=== PATIENT | female | born 1960 | race Caucasian/White ===

== ENCOUNTER 2016-05-31 15:15 | Inpatient (IN) | payer OTHER ==
[~2016-05-31] VITALS: Ht 157.5 cm; Wt 76.7 kg
[~2016-05-31 15:15] MED LIST: DIAZ5TAB4 PO; FLA250 PO; HYDR-4100 PO; HYDR12.5 PO; LEVO500T20 PO; LISI10TA5 PO; LORA-259 PO; NORCO5 PO; POTA20TA83 PO; SACC250C3 PO
[2016-05-31 15:24] VITALS: BP 160/109; PULSE 145; RESP 24; TEMP 99; O2SAT 97
--- NOTE | 2016-05-31 15:28 | NUR ---
Patient to ER bed 03 to gown for evaluation. Side rails up. Report given to Onur.
--- NOTE | 2016-05-31 15:30 | NUR ---
ER at bedside examining patient.
--- NOTE | 2016-05-31 15:40 | NUR ---
Pt presents to ED c/o LLQ abd pain raditing to flank. Pt h/o chronic back pain.Pt denies other significant med hx.
[2016-05-31] MEDS ORDERED: ONDANSETRON HCL 4 MG/2 ML VIAL IVP ONE (15:45)
[2016-05-31] MEDS ORDERED: NACL 0.9% 1,000 ML IV ONE (15:45)
--- NOTE | 2016-05-31 15:45 | NUR ---
# 20 gauge angiocath placed to Left Wrist. Use of asceptic technique. Opsite placed over site. Blood return noted. Blood for lab drawn from site. Flushed with 10 cc of normal saline. No evidence of infiltration noted. Patient tolerated well.
[2016-05-31 15:56] LABS: BILIRUBIN,URINE NEGATIVE (NEGATIVE); BLOOD, URINE NEGATIVE (NEGATIVE); CLARITY/URINE CLEAR (CLEAR); COLOR,URINE YELLOW (YELLOW); GLUCOSE,URINE NEGATIVE (NEGATIVE); KETONES,URINE NEGATIVE (NEGATIVE); LEUKOCYTE ESTERASE ,URINE NEGATIVE (NEGATIVE); NITRITE, URINE NEGATIVE (NEGATIVE); PH,URINE 6.5 (5.0-8.0); PROTEIN URINE NEGATIVE (NEGATIVE); UROBILINOGEN,URINE 0.2 (0.2-1.0)
[2016-05-31 16:03] LABS: EOSINOPHILS # (AUTO) 0.1 K/uL (0.0-0.4); MEAN CORPUSCULAR HEMOGLOBIN 28 pg (27-31); MEAN CORPUSCULAR HGB CONC 33 % (32-36)
[2016-05-31 16:13] LABS: CALCIUM 9.3 mg/dL (8.4-11.0); CREATININE 0.86 mg/dL (0.55-1.30); POTASSIUM 3.5 mmol/L (3.5-5.1)
[2016-05-31] MEDS ORDERED: LORazepam 2 MG/ML VIAL (FOR ER USE) IVP ONE (16:15)
[2016-05-31 16:16] LABS: BASOPHILS # (AUTO) 0.1 K/uL (0.0-0.2); BASOPHILS % (AUTO) 0.7 % (0.0-2.0); EOSINOPHILS % (AUTO) 1.3 % (0.0-4.0); HEMOGLOBIN 14.8 g/dL (12.0-16.0); LYMPHOCYTES # (AUTO) 2.2 K/uL (1.0-5.5); LYMPHOCYTES % (AUTO) 28.2 % (20.5-51.5); MEAN CORPUSCULAR VOLUME 85 fL (79.0-98.0); MONOCYTES # (AUTO) 0.2 K/uL (0.0-1.0); MONOCYTES % (AUTO) 2.4 % (1.7-9.3); NEUTROPHILS % (AUTO) 67.4 % (40.0-70.0); PLATELET COUNT (AUTO) 224 K/uL (130-430); RED CELL DISTRIBUTION WIDTH 13.2 % (9.0-15.0); WHITE BLOOD COUNT (AUTO) 7.6 K/uL (4.8-10.8)
[2016-05-31 16:18] LABS: ALBUMIN 4.4 g/dL (3.4-4.8); TOTAL BILIRUBIN 0.3 mg/dL (0.0-1.0); TOTAL PROTEIN, SERUM 8.6 g/dL (6.4-8.3)
[2016-05-31 16:20] LABS: PROTHROMBIN TIME 10.9 SECS (9.5-12.5)
--- NOTE | 2016-05-31 16:30 | NUR ---
Pt medicated for pain pain tolerated well.
[2016-05-31] MEDS ORDERED: KETOROLAC TROMETHAMINE 30 MG VIAL IVP ONE (17:00)
[2016-05-31 17:04] LABS: BARBITURATE, URINE NEGATIVE (NEG <=200); BENZODIAZEPINE, URINE POSITIVE (NEG <=150); CANNABINOID, URINE NEGATIVE (NEG <=50); COCAINE, URINE NEGATIVE (NEG <=150); METHAMPHETAMINES SCREEN,URINE NEGATIVE (NEG <=500); OPIATE, URINE POSITIVE (NEG <=100); PHENCYCLIDINE SCREEN,URINE NEGATIVE (NEG <=25); UR TRICYCLIC ANTIDEPRESSANTS NEGATIVE (NEG <=300); URINE AMPHETAMINE NEGATIVE (NEG <=500); URINE METHADONE NEGATIVE (NEG <=200); URINE OXYCODONE SCREEN NEGATIVE (NEG <=100); URINE PROPOXYPHENE SCREEN NEGATIVE (NEG <=300)
[2016-05-31] MEDS ORDERED: cefTRIAXone 1 GM IVPB PREMIX 50 ML IV ONE (17:30)
[2016-05-31] MEDS ORDERED: MORPHINE 4 MG/ML INJ. SYRINGE IVP ONE (17:30)
--- NOTE | 2016-05-31 18:30 | NUR ---
ADMIT NOTE Received pt from ER to the floor with a diagnosis of sepsis. Admission process initiated. Patient oriented to pain management, safety and call light-teach back done.
--- NOTE | 2016-05-31 18:35 | NUR ---
Dr. Carcamo at bedside to discuss POC.
--- NOTE | 2016-05-31 18:45 | NUR ---
Patient will be admitted to care of . Admitted to Telemetry unit. Will go to room 130a. Summary report printed. Report will be given at bedside.
[2016-05-31 18:54] VITALS: BP 151/94; PULSE 94; RESP 17; TEMP 97.1; O2SAT 99
[2016-05-31] MEDS ORDERED: MILK OF MAGNESIA 30 ML UDC PO PRN ×2 (19:00→19:15)
--- NOTE | 2016-05-31 19:23 | NUR ---
CONSULTATION PAGED REASON FOR CONSULTATION:ABDOMINAL PAIN WAS CONSULT CALLED?Y PERSON WHO WAS NOTIFIED:[place] CONSULTING PHYSICIAN:JOURDAN BEATTY (STEVEN [place] BUZZSAW OPERATOR HELPER) ROLL OR TAPE EDGE MACHINE OPERATOR SPECIALTY:GI ROLL OR TAPE EDGE MACHINE OPERATOR PHONE NUMBER:[phone]
--- NOTE | 2016-05-31 19:40 | NUR ---
DR. RODRIGUEZ EXAMINED AND TALKED TO PATIENT AT BEDSIDE
--- NOTE | 2016-05-31 19:47 | NUR ---
RECEIVED THE CALL FROM DR. PRESCOTT Received the call from Dr. Prescott and asked the reason for consult. Told Dr. Prescott chief complaint of abdomen pain and diarrhea, admitting diagnosis is sepsis. Dr. Prescott asked did patient has any CT pelvis and abdomen done. Told MD did not check it yet because changing shift and receiving report. MD stated "That is okay, just to put the order CT pelvis and abdomen with oral contrast, if not done yet. Also put the order of stool c-diff and stool culture if no other MD ordered." Order read back and okay to MD. Will check the order if no other MD ordered.
--- NOTE | 2016-05-31 19:50 | NUR ---
INITIAL NOTE Patient resting on the bed. No acute distress. Respiration even and unlabored. C/O abdomen pain 09/22, will give pain medication. AO x 4. Skin warm and dry to touch. IV intact to left wrist, no redness, no swelling. Discussed the safety issue, use call light when need help, and plan of care, verbally understanding. Safety measure maintained. Call light within reached. Bed in low position, side rails up, refused bed alarm. Will continue to monitor.
[2016-05-31 20:00] VITALS: BP 147/94; PULSE 95; RESP 18; TEMP 98.8; O2SAT 100
[2016-05-31] MEDS: PANTOPRAZOLE SODIUM 40 MG/VIAL (PROTONIX) IVP SCH (20:34)
[2016-05-31] MEDS: LACTOBACILLUS RHAMNOSUS GG 1 CAP CAPSULE PO SCH (20:34)
[2016-05-31] MEDS: DICYCLOMINE HCL 10 MG CAPSULE PO SCH ×2 (20:34→20:36)
[2016-05-31] MEDS: ENOXAPARIN SODIUM 40 MG/0.4 ML SYRINGE SUBCUT SCH (20:34)
[2016-05-31] MEDS: LORazepam 1 MG TABLET PO SCH (20:34)
[2016-05-31] MEDS: HYDROmorphone 2 MG/ML VIAL IVP PRN (20:35)
--- NOTE | 2016-05-31 20:35 | NUR ---
DILAUDID GIVEN Dilaudid 2mg IVP given as ordered for abdomen pain 09/22 per patient requested. No acute distress. Call light within reached. Bed in low position, side rails up. Will continue to monitor.
[2016-05-31] MEDS: KCL 20 mEq in 0.45% NS 1000 mL 1,000 ML IV SCH (20:36)
[2016-05-31] MEDS ORDERED: cefTRIAXone 1 GM in D5W 50 ML IV SCH (21:00)
[2016-05-31 21:20] VITALS: BP 147/94; PULSE 95; RESP 18; TEMP 98.8; O2SAT 100
[2016-05-31] MEDS: metroNIDAZOLE 500 mg/NS 100 ML IV SCH (21:34)
[2016-05-31] MEDS: ONDANSETRON HCL 4 MG/2 ML VIAL IVP PRN (23:10)
--- NOTE | 2016-05-31 23:10 | NUR ---
ZOFRAN GIVEN Patient c/o nausea, Zofran 4mg IVP given as ordered. No acute distress. Call light within reached. Safety measure maintained. Continue to monitor.
[2016-06-01 00:03] VITALS: BP 129/87; PULSE 87; RESP 18; TEMP 97.2; O2SAT 98
[2016-06-01] MEDS: HYDROmorphone 2 MG/ML VIAL IVP PRN ×7 (00:40→23:28)
--- NOTE | 2016-06-01 02:38 | NUR ---
ROUND Patient resting on the bed with eyes closed. No acute distress. Respiration even and unlabored. Bed in ow position, side rails up. Call light within reached. Continue to monitor.
[2016-06-01 04:00] VITALS: BP 122/76; PULSE 76; RESP 18; TEMP 97.8; O2SAT 99
--- NOTE | 2016-06-01 04:06 | NUR ---
ROUND Patient resting on the bed. Respiration even and unlabored. Bed in low position, side rails up. Call light within reached. Continue to monitor.
--- NOTE | 2016-06-01 04:50 | NUR ---
DILAUDID GIVEN Patient C/O abdomen pain 09/22. Dilaudid 2mg IVP given as ordered. No acute distress. Call light within reached. Bed in low position, side rails up. Will continue to monitor.
[2016-06-01] MEDS: metroNIDAZOLE 500 mg/NS 100 ML IV SCH ×3 (05:43→23:29)
[2016-06-01 06:08] LABS: BASOPHILS % (AUTO) 0.4 % (0.0-2.0); EOSINOPHILS # (AUTO) 0.3 K/uL (0.0-0.4); EOSINOPHILS % (AUTO) 4.8 % (0.0-4.0); HEMATOCRIT 35.4 % (36-48); HEMOGLOBIN 11.7 g/dL (12.0-16.0); LYMPHOCYTES # (AUTO) 2.7 K/uL (1.0-5.5); LYMPHOCYTES % (AUTO) 38.4 % (20.5-51.5); MEAN CORPUSCULAR HEMOGLOBIN 28 pg (27-31); MEAN CORPUSCULAR HGB CONC 33 % (32-36); MEAN CORPUSCULAR VOLUME 86 fL (79.0-98.0); MONOCYTES # (AUTO) 0.8 K/uL (0.0-1.0); MONOCYTES % (AUTO) 11.6 % (1.7-9.3); NEUTROPHILS # (AUTO) 3.1 K/uL (1.8-7.7); NEUTROPHILS % (AUTO) 44.8 % (40.0-70.0); PLATELET COUNT (AUTO) 190 K/uL (130-430); RED BLOOD CELL COUNT(AUTO) 4.11 MIL/uL (4.2-6.2); RED CELL DISTRIBUTION WIDTH 13.2 % (9.0-15.0); WHITE BLOOD COUNT (AUTO) 6.9 K/uL (4.8-10.8)
[2016-06-01 06:33] LABS: CALCIUM 7.7 mg/dL (8.4-11.0); CREATININE 0.75 mg/dL (0.55-1.30); POTASSIUM 3.5 mmol/L (3.5-5.1)
--- NOTE | 2016-06-01 06:39 | NUR ---
CLOSING NOTE Patient resting on the bed. No acute distress. Respiration even and unlabored. Skin warm and dry to touch. IV intact to left wrist, no redness, no swelling, no drainage. On KCl 20mEq in 1/2NS at 100ml/hr, infusing well. All needs met. Hourly rounding during shift. Pain med given around clock. NPO after midnight. Safety measure maintained. Call light within reached. Bed in low position, side rails up. Will endorse to morning shift nurse.
[2016-06-01 08:00] VITALS: BP 134/71; PULSE 77; RESP 16; TEMP 97.9; O2SAT 98
--- NOTE | 2016-06-01 08:00 | NUR ---
PATIENT A/OX4, BUT SOMEWHAT ANXIOUS. IV ON LEFT WRIST, #20, INFUSED WITH KCL 1/2 NS 20MEQ AT 100ML/HR, INTACT AND PATENT. C/O ABOUT DRY MOUTH AND EXPRESSED DESIRE TO DRINK; DR. RODRIGUEZ IS CALLED ABOUT CT RESULTS AND ASKED IF PATIENT CAN HAVE DRINK; DR RODRIGUEZ IS MADE AWARE. CALL LIGHT IN PLACE, BED LOCKED AT LOWEST POSITION, WILL CONTINUE TO MONITOR.
[2016-06-01] MEDS: DICYCLOMINE HCL 10 MG CAPSULE PO SCH ×2 (08:22→21:06)
[2016-06-01] MEDS: LORazepam 1 MG TABLET PO SCH ×2 (08:22→21:06)
[2016-06-01] MEDS: LACTOBACILLUS RHAMNOSUS GG 1 CAP CAPSULE PO SCH ×2 (08:22→21:06)
[2016-06-01] MEDS: DIAZEPAM 5 MG TABLET (VALIUM) PO SCH (08:22)
[2016-06-01] MEDS: PANTOPRAZOLE SODIUM 40 MG/VIAL (PROTONIX) IVP SCH ×2 (08:24→21:05)
--- NOTE | 2016-06-01 10:00 | NUR ---
PATIENT IS RESTING, NO SIGNS OF DISTRESS NOTED.
[2016-06-01 11:44] VITALS: BP 103/67; PULSE 61; RESP 19; TEMP 96.8; O2SAT 96
--- NOTE | 2016-06-01 12:00 | NUR ---
PATIENT C/O ABDOMINAL PAIN; 2MG DILAUDID IVP IS GIVEN.
--- NOTE | 2016-06-01 14:00 | NUR ---
PATIENT IS RESTING, SR ON MONITOR, NO SIGNS OF DISTRESS NOTED.
[2016-06-01 15:34] VITALS: BP 136/77; PULSE 71; RESP 19; TEMP 97.6; O2SAT 99
--- NOTE | 2016-06-01 16:00 | NUR ---
PATIENT IS C/O ABDOMINAL PAIN /. 2MG DILAUDID IS GIVEN IVP. WILL REASSESS.
--- NOTE | 2016-06-01 18:15 | NUR ---
PATIENT IS HAVING DINNER, NO SIGNS OF DISTRESS NOTED, SR ON MONITOR.
[2016-06-01] MEDS: KCL 20 mEq in 0.45% NS 1000 mL 1,000 ML IV SCH ×2 (18:41→21:10)
[2016-06-01] MEDS: ONDANSETRON HCL 4 MG/2 ML VIAL IVP PRN (18:41)
--- NOTE | 2016-06-01 19:40 | NUR ---
PAIN: PT CALLED AND STATED THAT SHE IS IN SEVERE PAIN AND ASKED FOR PAIN MEDICATION , INFORMED PT THAT RN DIDNT RECEIVED REPORT YET , WILL CHECK WITH THE ORDER AND WILL GIVE MEDICATION . NOTICED THAT DILAUDID IS DUE AT THIS TIME ;MEDICATION GIVEN TO THE PATIENT PER ORDER . Addendum: 06/02/16 at 2217 by Taurus Chance RN CORRECTION: WRONG DATE
[2016-06-01 19:45] VITALS: BP 140/79; PULSE 75; RESP 18; TEMP 99; O2SAT 96
--- NOTE | 2016-06-01 19:45 | NUR ---
INITIAL NOTE Patient resting on the bed. No acute distress. Respiration even and unlabored. AO x 4. Skin warm and dry to touch. IV intact to left wrist, no redness, no swelling, no drainage. On KCl 20mEq in 1/2NS at 100ml/hr, infusing well. Discussed the safety issue, use call light when need help, and plan of care, verbally understanding. Safety measure maintained. Call light within reached. Bed in low position, side rails up, refused bed alarm. Will continue to monitor.
[2016-06-01] MEDS: cefTRIAXone 1 GM in D5W 50 ML IV SCH (21:05)
[2016-06-01] MEDS: ENOXAPARIN SODIUM 40 MG/0.4 ML SYRINGE SUBCUT SCH (21:06)
--- NOTE | 2016-06-01 21:20 | NUR ---
ROUND Patient resting on the bed and watching TV. Respiration even and unlabored. No acute distress. Safety measure maintained. Call light within reached. continue to monitor.
[2016-06-02 00:15] VITALS: BP 142/92; PULSE 82; RESP 18; TEMP 98; O2SAT 99
--- NOTE | 2016-06-02 01:25 | NUR ---
ROUND Patient resting on the bed. Respiration even and unlabored. Bed in low position, side rails up. Call light within reached. Continue to monitor.
[2016-06-02] MEDS: HYDROmorphone 2 MG/ML VIAL IVP PRN ×6 (03:44→23:35)
--- NOTE | 2016-06-02 03:44 | NUR ---
DILAUDID GIVEN Patient C/O abdomen pain 09/22. Dilaudid 2mg IVP given as ordered. No acute distress. Safety measure maintained. Call light within reached. Bed in low position, side rails up. Will continue to monitor.
[2016-06-02 04:03] VITALS: BP 118/76; PULSE 77; RESP 18; TEMP 97.2; O2SAT 95
--- NOTE | 2016-06-02 05:10 | NUR ---
ROUND Patient resting on the bed. Respiration even and unlabored. Bed in low position, side rails up. Call light within reached. Continue to monitor.
--- NOTE | 2016-06-02 06:33 | NUR ---
CLOSING NOTE Patient sitting on the chair and watching TV. No acute distress. Respiration even and unlabored. Skin warm and dry to touch. IV intact to left wrist, no redness, no swelling, no drainage. On KCl 20mEq in 1/2NS at 100ml/hr, infusing well. All needs met. Hourly rounding during shift. Pain med given around clock. Safety measure maintained. Call light within reached. Bed in low position, side rails up, refused bed alarm. Will endorse to monitor shift nurse.
[2016-06-02] MEDS: metroNIDAZOLE 500 mg/NS 100 ML IV SCH ×3 (06:36→22:40)
[2016-06-02 07:45] VITALS: BP 162/87; PULSE 84; RESP 18; TEMP 97.8; O2SAT 97
--- NOTE | 2016-06-02 07:45 | NUR ---
opening notes received pt in room, pt sitting in chair, c/o pain 9/10 on abdomen, will medicate, no sob, no distress, on RA. call light and telephone in reach. bed in low position. reminded that we need stool sample for testing and to call for assist anytime and pain med, explained ordered medications , it effects and side effect.
[2016-06-02] MEDS: DICYCLOMINE HCL 10 MG CAPSULE PO SCH ×2 (08:02→21:07)
[2016-06-02] MEDS: DIAZEPAM 5 MG TABLET (VALIUM) PO SCH (08:02)
[2016-06-02] MEDS: LACTOBACILLUS RHAMNOSUS GG 1 CAP CAPSULE PO SCH ×2 (08:06→21:07)
[2016-06-02] MEDS: PANTOPRAZOLE SODIUM 40 MG/VIAL (PROTONIX) IVP SCH ×2 (08:06→21:07)
[2016-06-02] MEDS: LORazepam 1 MG TABLET PO SCH ×2 (08:07→21:07)
[2016-06-02] MEDS: KCL 20 mEq in 0.45% NS 1000 mL 1,000 ML IV SCH ×3 (09:45→22:46)
--- NOTE | 2016-06-02 09:49 | NUR ---
round notes, pt in bed, c/o of pain 05/23, stated that pain med worked only up to 30 min, told her that we will check with doctor if she can get other pain medications. safety and fall precaution in place. call light in reach, bed in low position. will continue to monitor.
--- NOTE | 2016-06-02 12:00 | NUR ---
rounding notes, Pt in bed, resting comfortably, no s/s pain, no distress, call light in reach, bed in low position. will cont to monitor.
[2016-06-02 12:28] VITALS: BP 139/78; PULSE 86; RESP 17; TEMP 98.5; O2SAT 100
[2016-06-02] MEDS ORDERED: AMITRIPTYLINE HCL 10 MG TABLET (ELAVIL) PO SCH ×2 (13:30→19:00)
[2016-06-02] MEDS ORDERED: AMITRIPTYLINE HCL 10 MG TABLET (ELAVIL) PO ONE (13:30)
--- NOTE | 2016-06-02 14:00 | NUR ---
rounding notes, Pt in bed, resting comfortably, pt c/o pain. pt requested for pain med, explained to pt that we will call pmd for additional pain med. new iv started on r forearm, call light in reach, bed in low position. will cont to monitor.
[2016-06-02 14:06] VITALS: Ht 157.5 cm; Wt 76.7 kg
--- NOTE | 2016-06-02 15:15 | NUR ---
closing notes, pt endorsed to RN Elif (from ICU) d/t change in staffing, sbar report given. endorsed that pt needs pain medication this time. and that i spoke with pmd dr bryant to increase/change time of pain med dilaudid. md did not give order. md said he may discharge patient later.
--- NOTE | 2016-06-02 15:29 | NUR ---
PAIN. PT SEEN WALKING TOWARDS THE BEDROOM DOOR, COMPLAINING OF ABDOMINAL PAIN, 7/10 SCALE, MEDICATED WITH DILAUDID 2 MG IVP.
--- NOTE | 2016-06-02 15:40 | NUR ---
LOC. PT HEARD TALKING ON THE PHONE, ON PRONE POSITION, WILL CONTINUE TO MONITOR.
--- NOTE | 2016-06-02 16:00 | NUR ---
REST. PT SEEN CALM AT THIS HOUR, SITTING UP IN THE CHAIR, HOLDING HER PHONE TO CHECK CALLS.
[2016-06-02 16:33] VITALS: BP 138/86; PULSE 87; RESP 16; TEMP 98.6; O2SAT 97
--- NOTE | 2016-06-02 17:10 | NUR ---
PAIN. PT SITTING IN THE CHAIR, ASKED FOR MEDICATION ON STOMACH PAIN, EDUCATED PT THAT SHE CAN NOT HAVE A DOSE NOW, EXPLAINED ON FREQUENCY OF ORDERED MEDS.
--- NOTE | 2016-06-02 18:40 | NUR ---
PT. SITTING COMFORTABLY IN BED. DENIES PAIN AT THIS TIME. REQUESTED FOR SOCKS AND VERBALIZED THAT THE ROOM TEMP. IS TOO COLD. LEFT PATIENT IN ROOM WITH CALL LIGHT WITHIN REACH.
[2016-06-02 19:40] VITALS: BP 141/78; PULSE 73; RESP 16; TEMP 98.2; O2SAT 96
--- NOTE | 2016-06-02 19:40 | NUR ---
PAIN: PT CALLED AND STATED THAT SHE IS IN SEVERE PAIN AND ASKED FOR PAIN MEDICATION , INFORMED PT THAT RN DIDNT RECEIVED REPORT YET , WILL CHECK WITH THE ORDER AND WILL GIVE MEDICATION . NOTICED THAT DILAUDID IS DUE AT THIS TIME ;MEDICATION GIVEN TO THE PATIENT PER ORDER .
--- NOTE | 2016-06-02 19:45 | NUR ---
INITIAL NOTES: PT IS A/O X4, MEDICATED WITH DILAUDID PER ORDER; PT STATED RN PUT MORE SALINE , INFORMED PT THAT ONLY USED 4 CC OF NS , PT IS NOT HAPPY THAT RN USED 4 CC.PT STATE YOU SHOULD NOT HAVE MIXED WITH 4 CC, IT WONT GIVE THE EFFECT , EDUCATED THE PT THE NEED TO MIX WITH NS , STILL PT IS NOT HAPPY . INFORMED CTheresaN BRANDON ; VITALS ARE STABLE ; ASSESSMENT DONE ;SR ON THE TELEMONITOR; BED IN LOW AND LOCK POSITION ; BED ALARM IS ON; INFORMED PT TO CALL FOR ASSISTANCE; PT STATED "I CAN WALK BY MYSELF, I DONT NEED ANY HELP" WILL CONTINUE TO MONITOR.
--- NOTE | 2016-06-02 20:00 | NUR ---
PAIN EDUCATION WHILE MAKING ROUNDS, PT. STILL COMPLAINING OF SEVERE ABDOMINAL PAIN, SHE STATED "DILAUDID IS NOT WORKING AND NURSES ARE MIXING IT WITH TOO MUCH SALINE." EDUCATION PROVIDED TO PT. REGARDING POLICY ON DILUTING DILAUDID, PT. STATED SHE DID NOT WANT US TO CALL THE DOCTOR.
[2016-06-02] MEDS: ENOXAPARIN SODIUM 40 MG/0.4 ML SYRINGE SUBCUT SCH (21:06)
[2016-06-02] MEDS: cefTRIAXone 1 GM in D5W 50 ML IV SCH (21:07)
--- NOTE | 2016-06-02 21:10 | NUR ---
MEDICATION: DUE MEDS GIVEN ; PT STATED SHE IS IN PAIN ,BECAUSE RN MIXED DILAUDID WITH MORE NS . TRY TO EDUCATE THE PT , INFORMED C.N ; INFORMED PT WILL CALL MD TO NOTIFY ABOUT THE PAIN .PT STATED NO .
[2016-06-02] MEDS: ONDANSETRON HCL 4 MG/2 ML VIAL IVP PRN (22:44)
--- NOTE | 2016-06-02 22:50 | NUR ---
NAUSEA: PT STATED SHE IS SLIGHTLY NAUSEATED , MEDICATED WITH ZOFRAN PER ORDER . PT STATED SHE IS STILL IN PAIN , INFORMED PT THAT WILL CALL MD , PT STTAED NO , I KNOW THAT I CAN TAKE MEDICATION 10 MIN EARLIER , INFORMED PT THAT PAIN MEDICATION IS ONLY DUE AT 2340 . PT STATED I KNOW THAT BUT I CAN HAVE IT AT 11 :30 . WILL MONITOR
--- NOTE | 2016-06-02 23:30 | NUR ---
MD ROUNDS: DR WYNNE MADE ROUNDS; INFORMED HIM THAT PT IS C/O PAIN WITH IN 2 HRS AFTER HER PAIN MEDICATION . MD STATED JUST GIVE DILAUDID PER ORDER.
--- NOTE | 2016-06-02 23:35 | NUR ---
PAIN: PT CALLED AND SAID PAIN MEDICATION IS DUE ; PT STATED SHE IS IN SEVERE PAIN ; PT SAID SHE DON'T WANT TO MIX THE DILAUDID WITH TOO MUCH OF SALINE ;EDUCATED THE PT , MIXED AND SHOWED THE PT ; MEDICATED , IV FLUSHED WELL.
[2016-06-03 00:46] VITALS: BP 132/88; PULSE 70; RESP 16; TEMP 97.4; O2SAT 94
--- NOTE | 2016-06-03 00:54 | NUR ---
RN ROUNDS : PT IS COMFORTABLE , READING FROM THE PHONE . WILL MONITOR.
--- NOTE | 2016-06-03 02:00 | NUR ---
RN ROUNDS: PT IS SLEEPING; NOT IN ANY ACUTE DISTRESS; WILL CONTINUE TO MONITOR.
--- NOTE | 2016-06-03 03:17 | NUR ---
PT CALLED: PT CALLED AND STATED HER PAIN MEDICATION WILL BE DUE AT 329 ; ASKED PT ARE YOU IN ANY PAIN ; PT STATED YES ; INFORMED PT WILL MEDICATE AT 329
[2016-06-03] MEDS: HYDROmorphone 2 MG/ML VIAL IVP PRN ×5 (03:34→18:18)
--- NOTE | 2016-06-03 03:34 | NUR ---
PAIN: PT C/O PAIN , MEDICATED WITH DILAUDID ; WHILE GIVING MEDICATION PT STATED SHE CANNOT FEEL THE COLD , EXPLAINED TO THE PT AND SHOWED HER THE SYRINGE WHILE GIVING .
[2016-06-03 03:54] VITALS: BP 116/68; PULSE 76; RESP 17; TEMP 98; O2SAT 94
--- NOTE | 2016-06-03 04:00 | NUR ---
RN NOTES: PT CALLED AND STATED THAT SHE WANTS RN TO CHECK HER PRIVATE PART , SHE FEELS LIKE SHE HAS RASHES THEIR , CHECKED , NO RASHES NOTED ; PT STATED RN CANNOT SEE WELL RN MIGHT NEED GLASSES . INFORMED PT WILL CALL C.N ; C.N CAME AND CHECKED AND NO RASHES NOTED .
[2016-06-03] MEDS: KCL 20 mEq in 0.45% NS 1000 mL 1,000 ML IV SCH ×2 (05:30→11:36)
--- NOTE | 2016-06-03 05:30 | NUR ---
RN NOTES: PT IS AWAKE, NOT IN ANY ACUTE DISTRESS. WILL CONTINUE TO MONITOR.
[2016-06-03] MEDS: metroNIDAZOLE 500 mg/NS 100 ML IV SCH ×2 (05:31→13:06)
--- NOTE | 2016-06-03 07:10 | NUR ---
CLOSING NOTES: PT HAD ONE SMALL DROP OF LOOSE BM , COLLECTED AND TOOK TO THE LAB , [facility] THEY CAN ONLY DO OCCULT BLOOD WITH IT . PT IS AWAKE;NOT IN ANY ACUTE DISTRESS; NO SIGNIFICANT CHANGES IN THE CONDITION ; WILL CONTINUE TO MONITOR AND WILL ENDORSE TO NEXT SHIFT NURSE. NO C/O ANY VOMITING OR DIARRHEA DURING THE SHIFT .
[2016-06-03 08:00] VITALS: BP 135/79; PULSE 79; RESP 18; TEMP 97.5; O2SAT 96
--- NOTE | 2016-06-03 08:00 | NUR ---
NOTE PT SITTING UP IN BED - NO SOB/RESP DISTRESS OR PAIN/DISCOMFORT NOTED. IV IN RIGHT FOREARM INTACT AND PATENT AT THIS TIME. IVF'S INFUSING WELL. PT AMBULATORY TO RESTROOM AND HALLWAY WITH IV POLE. PT WAS INFORMED THAT STOOL SPECIMEN WAS REQUIRED FOR TESTS GI MD HAD ORDERED YESTERDAY. PT VERBALIZES UNDERSTANDING. NO NEEDS NOTED. CALL LIGHT WITHIN REACH.
[2016-06-03] MEDS: PANTOPRAZOLE SODIUM 40 MG/VIAL (PROTONIX) IVP SCH (08:59)
[2016-06-03] MEDS: LORazepam 1 MG TABLET PO SCH (08:59)
[2016-06-03] MEDS: DICYCLOMINE HCL 10 MG CAPSULE PO SCH (08:59)
[2016-06-03] MEDS: LACTOBACILLUS RHAMNOSUS GG 1 CAP CAPSULE PO SCH (08:59)
[2016-06-03] MEDS: DIAZEPAM 5 MG TABLET (VALIUM) PO SCH (09:00)
[2016-06-03] MEDS ORDERED: AMITRIPTYLINE HCL 10 MG TABLET (ELAVIL) PO SCH (09:00)
[2016-06-03] MEDS ORDERED: MILK OF MAGNESIA 30 ML UDC PO ONE (09:15)
--- NOTE | 2016-06-03 10:00 | NUR ---
NOTE PT RESTING IN BED - NO NEEDS NOTED AT THIS TIME. PT WATCHING TELEVISION. PAIN TOLERANCE AT ACCEPTABLE LEVEL AT THIS TIME. CALL LIGHT WITHIN REACH.
[2016-06-03 12:31] VITALS: BP 128/75; PULSE 94; RESP 16; TEMP 98.3; O2SAT 99
--- NOTE | 2016-06-03 12:55 | NUR ---
NOTE PT SITTING UP IN BED EATING HER LUNCH AT THIS TIME. PAIN MEDICATION GIVEN AT 1135AM, REQUESTED AND SCHEDULED. PAIN TOLERABLE AT THIS TIME. IVF'S INFUSING WELL. CALL LIGHT WITHIN REACH.
--- NOTE | 2016-06-03 13:40 | NUR ---
NOTE 2ND STOOL SPECIMEN SENT TO LAB FOR TESTS ON STOOL. PT AMBULATORY IN HALLWAY WITH IV POLE AT THIS TIME.
--- NOTE | 2016-06-03 15:00 | NUR ---
NOTE PT RESTING IN BED. NO NEEDS NOTED. IVF'S INFUSING WELL THROUGH RIGHT IV SITE AT THIS TIME. PAIN TOLERABLE AT THIS TIME. CALL LIGHT WITHIN REACH.
[2016-06-03 16:00] VITALS: BP 122/64; PULSE 84; RESP 17; TEMP 98; O2SAT 99
--- NOTE | 2016-06-03 16:30 | NUR ---
note DR WYNNE ON THE FLOOR. VERBAL ORDER TO DC TELE AND SALINE LOCK IVF'S AT THIS TIME WAS GIVEN AND CARRIED OUT.
--- NOTE | 2016-06-03 16:45 | NUR ---
NOTE PT REC'D DISCHARGE HOME ORDER. PT REQUESTED PAIN MEDICATION AT 1830 BEFORE GOING HOME, DR WYNNE OKAYED PAIN IVP MEDICATION BEFORE PT GOES HOME. PT CALLING FAMILY AND PACKING HER BELONGINGS AT THIS TIME.
[2016-06-03 17:00] VITALS: BP 137/73; PULSE 72; RESP 18; TEMP 97.5; O2SAT 97
--- NOTE | 2016-06-03 18:10 | NUR ---
NOTE PT DRESSED IN STREET CLOTHES AND PACKED ALL HER BELONGINGS AT THIS TIME. NO SOB/RESP DISTRESS NOTED AT THIS TIME. PT'S TELE UNIT WAS DC'D AND RETURNED TO TRAFFIC CONTROL TECHNICIAN.
--- NOTE | 2016-06-03 18:40 | NUR ---
NOTE PT OFF THE FLOOR VIA WHEELCHAIR WITH ALL HER BELONGINGS. NO SOB/RESP DISTRESS OR ABDOMINAL PAIN/DISCOMFORT NOTED. PT STABLE. PT WAS GIVEN DISCHARGE INSTRUCTIONS AND QUESTIONS/CONCERNS WERE ANSWERED AT THIS TIME.
== END 2016-06-03 19:41 | disposition home or self-care (01) | DRG 392 ==
LOC: SED 15:15 → STU 18:03
PROVIDERS: ADMIT Family Medicine; ATTEND Family Medicine
DX: K52.9 Noninfective gastroenteritis and colitis, unspecified (principal); F41.9 Anxiety disorder, unspecified; M79.7 Fibromyalgia; I10 Essential (primary) hypertension; F32.9 Major depressive disorder, single episode, unspecified; G89.29 Other chronic pain; F17.210 Nicotine dependence, cigarettes, uncomplicated; Z90.710 Acquired absence of both cervix and uterus; Z90.721 Acquired absence of ovaries, unilateral; Z88.0 Allergy status to penicillin; Z79.899 Other long term (current) drug therapy
CPT/HCPCS: 36415; 76700-TC; 80048; 80053; 80307; 81003; 82150-TC; 82272; 83605; 83690-TC; 83735-TC; 85025; 85610-TC; 85730-TC; 87040-TC; 87045-TC; 87046; 87177; 87230-TC; 96365; 96375; 99285; C9113; J0696; J1170; J1650; J1885; J2060; J2270; J2405; J3480; J3490; J7030; J7060

== ENCOUNTER 2016-09-18 21:19 | Emergency (ER) | payer OTHER ==
[~2016-09-18] VITALS: Ht 157.5 cm; Wt 72.1 kg
[~2016-09-18 21:19] MED LIST changes: -HYDR12.5 PO; -LISI10TA5 PO; -NORCO5 PO
[2016-09-18 21:26] VITALS: BP_SYST 160
--- NOTE | 2016-09-18 21:26 | NUR ---
Patient to ER bed 8 to gown for evaluation. Side rails up. Report given to CARISSA Coronado.
--- NOTE | 2016-09-18 21:45 | NUR ---
Awake, alert. Pt states she had been having abdominal pain radiating to the back, has nausea and vomiting.
--- NOTE | 2016-09-18 22:00 | NUR ---
ER at bedside examining patient.
[2016-09-18 22:09] LABS: BILIRUBIN,URINE NEGATIVE (NEGATIVE); BLOOD, URINE NEGATIVE (NEGATIVE); CLARITY/URINE CLEAR (CLEAR); COLOR,URINE YELLOW (YELLOW); GLUCOSE,URINE NEGATIVE (NEGATIVE); KETONES,URINE NEGATIVE (NEGATIVE); LEUKOCYTE ESTERASE ,URINE NEGATIVE (NEGATIVE); NITRITE, URINE NEGATIVE (NEGATIVE); PH,URINE 6.5 (5.0-8.0); PROTEIN URINE NEGATIVE (NEGATIVE); UROBILINOGEN,URINE 0.2 (0.2-1.0)
[2016-09-18] MEDS ORDERED: NACL 0.9% 1,000 ML IV SCH (22:29)
[2016-09-18] MEDS ORDERED: HYDROmorphone 1 MG INJ. 1 MG/ML AMPUL IVP ONE (22:30)
[2016-09-18] MEDS ORDERED: ONDANSETRON HCL 4 MG/2 ML VIAL IVP ONE (22:30)
[2016-09-18 23:10] LABS: BASOPHILS % (AUTO) 0.4 % (0.0-2.0); EOSINOPHILS # (AUTO) 0.2 K/uL (0.0-0.4); EOSINOPHILS % (AUTO) 1.9 % (0.0-4.0); HEMATOCRIT 45.9 % (36-48); HEMOGLOBIN 14.8 g/dL (12.0-16.0); LYMPHOCYTES # (AUTO) 2.6 K/uL (1.0-5.5); LYMPHOCYTES % (AUTO) 26.5 % (20.5-51.5); MEAN CORPUSCULAR HEMOGLOBIN 28 pg (27-31); MEAN CORPUSCULAR HGB CONC 32 % (32-36); MEAN CORPUSCULAR VOLUME 86 fL (79.0-98.0); MONOCYTES # (AUTO) 0.6 K/uL (0.0-1.0); MONOCYTES % (AUTO) 6.6 % (1.7-9.3); NEUTROPHILS # (AUTO) 6.4 K/uL (1.8-7.7); NEUTROPHILS % (AUTO) 64.6 % (40.0-70.0); PLATELET COUNT (AUTO) 240 K/uL (130-430); RED BLOOD CELL COUNT(AUTO) 5.32 MIL/uL (4.2-6.2); RED CELL DISTRIBUTION WIDTH 14.2 % (9.0-15.0); WHITE BLOOD COUNT (AUTO) 9.8 K/uL (4.8-10.8)
[2016-09-18 23:17] LABS: CALCIUM 9.3 mg/dL (8.4-11.0); CREATININE 0.8 mg/dL (0.55-1.30); POTASSIUM 3.3 mmol/L (3.5-5.1)
[2016-09-18 23:22] LABS: ALBUMIN 4.2 g/dL (3.4-4.8); TOTAL BILIRUBIN 0.3 mg/dL (0.0-1.0); TOTAL PROTEIN, SERUM 8.3 g/dL (6.4-8.3)
[2016-09-19] MEDS ORDERED: HYDROmorphone 1 MG INJ. 1 MG/ML AMPUL IVP ONE (00:15)
[2016-09-19 01:30] VITALS: BP_SYST 146
--- NOTE | 2016-09-19 01:30 | NUR ---
Patient given written and verbal discharge instructions and verbalizes understanding. ER dr Elmer GUZMAN discussed with patient the results and treatment provided. Patient in stable condition. ID arm band removed. IV catheter removed intact and dressing applied, no active bleeding. Rx of miralax, reglan, zofran, given. Patient educated on pain management and to follow up with PMD. Pain Scale 2/10. Opportunity for questions provided and answered.
== END 2016-09-19 01:30 | disposition home or self-care (01) ==
LOC: SED 21:19
DX: R10.9 Unspecified abdominal pain (principal); R11.0 Nausea; I10 Essential (primary) hypertension; Z90.710 Acquired absence of both cervix and uterus; Z88.1 Allergy status to other antibiotic agents; Z79.899 Other long term (current) drug therapy
CPT/HCPCS: 36415; 71010; 74176; 80053; 81003; 81025; 83605; 84484; 85025; 85610; 85730; 87040; 93005; 96361; 96374; 96375; 96376; 99285; J1170 ×2; J2405; J7030

== ENCOUNTER 2016-12-26 17:53 | Emergency (ER) | payer OTHER ==
[~2016-12-26] VITALS: Ht 152.4 cm; Wt 66.7 kg
[2016-12-26 18:02] VITALS: BP_SYST 169
[2016-12-26 18:56] LABS: BASOPHILS # (AUTO) 0.1 K/uL (0.0-0.2); BASOPHILS % (AUTO) 1.3 % (0.0-2.0); EOSINOPHILS # (AUTO) 0.3 K/uL (0.0-0.4); EOSINOPHILS % (AUTO) 3.6 % (0.0-4.0); HEMATOCRIT 45.3 % (36-48); HEMOGLOBIN 14.8 g/dL (12.0-16.0); LYMPHOCYTES # (AUTO) 2.3 K/uL (1.0-5.5); LYMPHOCYTES % (AUTO) 24.8 % (20.5-51.5); MEAN CORPUSCULAR HEMOGLOBIN 29 pg (27-31); MEAN CORPUSCULAR HGB CONC 33 % (32-36); MEAN CORPUSCULAR VOLUME 88 fL (79.0-98.0); MONOCYTES # (AUTO) 0.9 K/uL (0.0-1.0); MONOCYTES % (AUTO) 9.9 % (1.7-9.3); NEUTROPHILS # (AUTO) 5.8 K/uL (1.8-7.7); NEUTROPHILS % (AUTO) 60.4 % (40.0-70.0); PLATELET COUNT (AUTO) 257 K/uL (130-430); RED BLOOD CELL COUNT(AUTO) 5.18 MIL/uL (4.2-6.2); RED CELL DISTRIBUTION WIDTH 12.8 % (9.0-15.0); WHITE BLOOD COUNT (AUTO) 9.4 K/uL (4.8-10.8)
[2016-12-26 19:13] LABS: CALCIUM 8.9 mg/dL (8.4-11.0); CREATININE 0.73 mg/dL (0.55-1.30)
[2016-12-26 19:18] LABS: ALBUMIN 4.1 g/dL (3.4-4.8); TOTAL BILIRUBIN 0.2 mg/dL (0.0-1.0)
[2016-12-26] MEDS ORDERED: PROCHLORPERAZINE EDISYLATE 10 MG/2 ML VIAL IM ONE ×2 (19:45→20:30)
[2016-12-26] MEDS ORDERED: POTASSIUM CHLORIDE 20 MEQ/PKT PACKET PO ONE ×2 (19:45→20:30)
[2016-12-26] MEDS ORDERED: fentaNYL CITRATE/PF 100 MCG/2 ML AMP IM ONE ×2 (19:45→20:30)
[2016-12-26 20:54] VITALS: BP_SYST 140
== END 2016-12-26 20:54 | disposition home or self-care (01) ==
LOC: SED 17:53
DX: M54.12 Radiculopathy, cervical region (principal); E87.6 Hypokalemia; G89.29 Other chronic pain; I10 Essential (primary) hypertension; Z90.710 Acquired absence of both cervix and uterus; Z98.51 Tubal ligation status; Z88.1 Allergy status to other antibiotic agents; Z88.7 Allergy status to serum and vaccine; Z79.899 Other long term (current) drug therapy
CPT/HCPCS: 36415; 71010; 80053; 84484; 85025; 93005; 96372; 99285; J0780; J3010

== ENCOUNTER 2017-03-09 15:20 | Emergency (ER) | payer OTHER ==
[~2017-03-09] VITALS: Ht 152.4 cm; Wt 66.2 kg
[2017-03-09 15:28] VITALS: BP_SYST 162
--- NOTE | 2017-03-09 15:37 | NUR ---
Patient triaged and placed in waiting room. VSS and patient appears in no acute distress at this time. Accompanied by self, awaiting available bed, and MD notified of need for MSE. EKG shown to Dr. Romero sinus tach. Pt denies chest pain, states her HR goes up when she is in pain.
[2017-03-09 15:53] LABS: BILIRUBIN,URINE NEGATIVE (NEGATIVE); BLOOD, URINE NEGATIVE (NEGATIVE); CLARITY/URINE CLEAR (CLEAR); COLOR,URINE YELLOW (YELLOW); GLUCOSE,URINE NEGATIVE (NEGATIVE); KETONES,URINE NEGATIVE (NEGATIVE); LEUKOCYTE ESTERASE ,URINE NEGATIVE (NEGATIVE); NITRITE, URINE NEGATIVE (NEGATIVE); PROTEIN URINE NEGATIVE (NEGATIVE); UROBILINOGEN,URINE 0.2 (0.2-1.0)
[2017-03-09 16:16] LABS: BASOPHILS # (AUTO) 0.2 K/uL (0.0-0.2); BASOPHILS % (AUTO) 1.5 % (0.0-2.0); EOSINOPHILS # (AUTO) 0.2 K/uL (0.0-0.4); EOSINOPHILS % (AUTO) 1.7 % (0.0-4.0); HEMOGLOBIN 14.5 g/dL (12.0-16.0); LYMPHOCYTES # (AUTO) 2.6 K/uL (1.0-5.5); LYMPHOCYTES % (AUTO) 21.2 % (20.5-51.5); MEAN CORPUSCULAR HEMOGLOBIN 28 pg (27-31); MEAN CORPUSCULAR HGB CONC 33 % (32-36); MEAN CORPUSCULAR VOLUME 85 fL (79.0-98.0); MONOCYTES # (AUTO) 0.5 K/uL (0.0-1.0); MONOCYTES % (AUTO) 4.3 % (1.7-9.3); NEUTROPHILS # (AUTO) 8.8 K/uL (1.8-7.7); NEUTROPHILS % (AUTO) 71.3 % (40.0-70.0); PLATELET COUNT (AUTO) 308 K/uL (130-430); RED BLOOD CELL COUNT(AUTO) 5.15 MIL/uL (4.2-6.2); RED CELL DISTRIBUTION WIDTH 13.3 % (9.0-15.0); WHITE BLOOD COUNT (AUTO) 12.3 K/uL (4.8-10.8)
--- NOTE | 2017-03-09 16:26 | NUR ---
Patient to ER bed 05 to gown for evaluation. Side rails up. Report given to nurse
[2017-03-09 16:35] LABS: CALCIUM 10.1 mg/dL (8.4-11.0); CREATININE 0.7 mg/dL (0.55-1.30); POTASSIUM 3.7 mmol/L (3.5-5.1)
[2017-03-09 16:51] LABS: ALBUMIN 4.3 g/dL (3.4-4.8); TOTAL BILIRUBIN 0.3 mg/dL (0.0-1.0)
--- NOTE | 2017-03-09 17:04 | NUR ---
ER at bedside examining patient.
[2017-03-09] MEDS ORDERED: MAG HYDROX/AL HYDROX/SIMETH 30 ML, LIDOCAINE VISCOUS 2% 15ML (PO) 10 ML, BELLADONNA ALK... PO ONE ×3 (17:15)
[2017-03-09] MEDS ORDERED: KETOROLAC TROMETHAMINE 60 MG/2 ML VIAL IM ONE (17:15)
--- NOTE | 2017-03-09 17:41 | NUR ---
C/O abd pain with n/v with history of the same no s/s of distress at this time
[2017-03-09] MEDS ORDERED: ONDANSETRON 4 MG ODT TAB PO ONE (18:00)
--- NOTE | 2017-03-09 18:09 | NUR ---
Patient given written and verbal discharge instructions and verbalizes understanding. ER MD discussed with patient the results and treatment provided. Patient in stable condition. ID arm band removed. Rx of zofran given. Patient educated on pain management and to follow up with PMD. Pain Scale 6/10, will take her miralx and norco when she gets home. Opportunity for questions provided and answered.
[2017-03-09 18:10] VITALS: BP_SYST 141
== END 2017-03-09 18:10 | disposition home or self-care (01) ==
LOC: SED 15:20
DX: R10.12 Left upper quadrant pain (principal); R19.7 Diarrhea, unspecified; R11.0 Nausea; I10 Essential (primary) hypertension; F17.200 Nicotine dependence, unspecified, uncomplicated; Z90.710 Acquired absence of both cervix and uterus; Z88.1 Allergy status to other antibiotic agents; Z88.7 Allergy status to serum and vaccine; Z98.890 Other specified postprocedural states
CPT/HCPCS: 36415; 80053; 81003; 83690; 85025; 93005; 96372; 99285; J1885; J2001; Q0162

== ENCOUNTER 2017-06-20 06:22 | Emergency (ER) | payer OTHER ==
[~2017-06-20] VITALS: Ht 157.5 cm; Wt 70.3 kg
[2017-06-20 06:35] VITALS: BP_SYST 165
[2017-06-20 07:06] LABS: BILIRUBIN,URINE NEGATIVE (NEGATIVE); BLOOD, URINE NEGATIVE (NEGATIVE); CLARITY/URINE CLEAR (CLEAR); COLOR,URINE YELLOW (YELLOW); GLUCOSE,URINE NEGATIVE (NEGATIVE); KETONES,URINE NEGATIVE (NEGATIVE); LEUKOCYTE ESTERASE ,URINE NEGATIVE (NEGATIVE); NITRITE, URINE NEGATIVE (NEGATIVE); PH,URINE 7.5 (5.0-8.0); PROTEIN URINE NEGATIVE (NEGATIVE); UROBILINOGEN,URINE 0.2 (0.2-1.0)
[2017-06-20] MEDS ORDERED: KETOROLAC TROMETHAMINE 30 MG VIAL IVP ONE (07:45)
[2017-06-20] MEDS ORDERED: MAG HYDROX/AL HYDROX/SIMETH 30 ML, BELLADONNA ALKALOIDS/PHENOBARB 10 ML, LIDOCAINE VISC... PO ONE ×3 (07:45)
[2017-06-20] MEDS ORDERED: KETOROLAC TROMETHAMINE 60 MG/2 ML VIAL IM ONE (07:45)
[2017-06-20 07:49] LABS: BASOPHILS # (AUTO) 0.1 K/uL (0.0-0.2); EOSINOPHILS # (AUTO) 0.1 K/uL (0.0-0.4); EOSINOPHILS % (AUTO) 1.1 % (0.0-4.0); HEMATOCRIT 46.3 % (36-48); HEMOGLOBIN 15.4 g/dL (12.0-16.0); LYMPHOCYTES # (AUTO) 1.5 K/uL (1.0-5.5); MEAN CORPUSCULAR HEMOGLOBIN 29 pg (27-31); MEAN CORPUSCULAR HGB CONC 33 % (32-36); MEAN CORPUSCULAR VOLUME 87 fL (79.0-98.0); MONOCYTES # (AUTO) 0.4 K/uL (0.0-1.0); MONOCYTES % (AUTO) 3.6 % (1.7-9.3); NEUTROPHILS # (AUTO) 7.6 K/uL (1.8-7.7); NEUTROPHILS % (AUTO) 79.3 % (40.0-70.0); PLATELET COUNT (AUTO) 267 K/uL (130-430); RED BLOOD CELL COUNT(AUTO) 5.32 MIL/uL (4.2-6.2); RED CELL DISTRIBUTION WIDTH 13.9 % (9.0-15.0); WHITE BLOOD COUNT (AUTO) 9.7 K/uL (4.8-10.8)
[2017-06-20 07:54] LABS: CALCIUM 9.9 mg/dL (8.4-11.0); CREATININE 0.57 mg/dL (0.55-1.30); POTASSIUM 3.1 mmol/L (3.5-5.1)
[2017-06-20 07:58] LABS: ALBUMIN 4.5 g/dL (3.4-4.8); TOTAL BILIRUBIN 0.5 mg/dL (0.0-1.0)
[2017-06-20 08:17] LABS: BARBITURATE, URINE NEGATIVE (NEG <=200); BENZODIAZEPINE, URINE POSITIVE (NEG <=150); CANNABINOID, URINE NEGATIVE (NEG <=50); COCAINE, URINE NEGATIVE (NEG <=150); METHAMPHETAMINES SCREEN,URINE NEGATIVE (NEG <=500); OPIATE, URINE POSITIVE (NEG <=100); PHENCYCLIDINE SCREEN,URINE NEGATIVE (NEG <=25); UR TRICYCLIC ANTIDEPRESSANTS NEGATIVE (NEG <=300); URINE AMPHETAMINE NEGATIVE (NEG <=500); URINE METHADONE NEGATIVE (NEG <=200); URINE OXYCODONE SCREEN NEGATIVE (NEG <=100); URINE PROPOXYPHENE SCREEN NEGATIVE (NEG <=300)
[2017-06-20 09:11] VITALS: BP_SYST 163
== END 2017-06-20 09:09 | disposition home or self-care (01) ==
LOC: SED 06:22
DX: G89.29 Other chronic pain (principal); R10.13 Epigastric pain; F45.9 Somatoform disorder, unspecified; R30.0 Dysuria; I10 Essential (primary) hypertension; K21.9 Gastro-esophageal reflux disease without esophagitis; Z88.1 Allergy status to other antibiotic agents; Z79.899 Other long term (current) drug therapy
CPT/HCPCS: 36415; 80053; 80307; 81003; 83690; 85025; 96374; 99284; J1885; J2001

== ENCOUNTER 2017-10-17 22:23 | Emergency (ER) | payer OTHER ==
[~2017-10-17] VITALS: Ht 152.4 cm; Wt 72.6 kg
[2017-10-17] MEDS ORDERED: NACL 0.9% 1,000 ML IV ONE (22:28)
[2017-10-17] MEDS ORDERED: ONDANSETRON HCL 4 MG/2 ML VIAL IVP ONE (23:00)
[2017-10-17] MEDS ORDERED: MORPHINE 4 MG/ML INJ. SYRINGE IVP ONE (23:00)
[2017-10-17 23:07] LABS: BILIRUBIN,URINE NEGATIVE (NEGATIVE); BLOOD, URINE NEGATIVE (NEGATIVE); CLARITY/URINE CLEAR (CLEAR); COLOR,URINE YELLOW (YELLOW); GLUCOSE,URINE NEGATIVE (NEGATIVE); KETONES,URINE NEGATIVE (NEGATIVE); LEUKOCYTE ESTERASE ,URINE NEGATIVE (NEGATIVE); NITRITE, URINE NEGATIVE (NEGATIVE); PH,URINE 5.5 (5.0-8.0); PROTEIN URINE NEGATIVE (NEGATIVE); UROBILINOGEN,URINE 0.2 (0.2-1.0)
[2017-10-17 23:10] LABS: BASOPHILS # (AUTO) 0.1 K/uL (0.0-0.2); BASOPHILS % (AUTO) 1.2 % (0.0-2.0); EOSINOPHILS # (AUTO) 0.2 K/uL (0.0-0.4); EOSINOPHILS % (AUTO) 2.6 % (0.0-4.0); HEMATOCRIT 40.2 % (36-48); LYMPHOCYTES # (AUTO) 2.8 K/uL (1.0-5.5); LYMPHOCYTES % (AUTO) 31.6 % (20.5-51.5); MEAN CORPUSCULAR HEMOGLOBIN 30 pg (27-31); MEAN CORPUSCULAR HGB CONC 35 % (32-36); MEAN CORPUSCULAR VOLUME 87 fL (79.0-98.0); MONOCYTES # (AUTO) 0.6 K/uL (0.0-1.0); MONOCYTES % (AUTO) 7.1 % (1.7-9.3); NEUTROPHILS # (AUTO) 5.2 K/uL (1.8-7.7); NEUTROPHILS % (AUTO) 57.5 % (40.0-70.0); PLATELET COUNT (AUTO) 217 K/uL (130-430); RED BLOOD CELL COUNT(AUTO) 4.64 MIL/uL (4.2-6.2); RED CELL DISTRIBUTION WIDTH 13.9 % (9.0-15.0); WHITE BLOOD COUNT (AUTO) 8.9 K/uL (4.8-10.8)
[2017-10-17 23:16] LABS: CALCIUM 9.2 mg/dL (8.4-11.0); CREATININE 0.83 mg/dL (0.55-1.30); POTASSIUM 3.6 mmol/L (3.5-5.1)
[2017-10-17 23:20] LABS: PROTHROMBIN TIME 10.1 SECS (9.5-12.5)
[2017-10-17 23:22] LABS: ALBUMIN 4.2 g/dL (3.4-4.8); TOTAL BILIRUBIN 0.2 mg/dL (0.0-1.0)
[2017-10-18] MEDS ORDERED: MAG HYDROX/AL HYDROX/SIMETH 30 ML, BELLADONNA ALKALOIDS/PHENOBARB 10 ML, LIDOCAINE VISC... PO ONE ×3 (00:45)
[2017-10-18] MEDS ORDERED: ONDANSETRON HCL 4 MG/2 ML VIAL ONE (01:42)
[2017-10-18] MEDS ORDERED: ONDANSETRON HCL 4 MG/2 ML VIAL IVP ONE (01:45)
[2017-10-18 01:47] VITALS: BP_SYST 141
== END 2017-10-18 01:47 | disposition home or self-care (01) ==
LOC: SED 22:23
DX: R10.13 Epigastric pain (principal); K21.9 Gastro-esophageal reflux disease without esophagitis; I10 Essential (primary) hypertension; F17.200 Nicotine dependence, unspecified, uncomplicated; Z88.1 Allergy status to other antibiotic agents; Z88.7 Allergy status to serum and vaccine; Z79.899 Other long term (current) drug therapy
CPT/HCPCS: 36415; 71045; 80053; 81003; 82550; 83690; 84484; 85025; 85610; 85730; 93005; 96361; 96374; 96375; 96376; 99285; J2001; J2270; J2405 ×2; J7030

== ENCOUNTER 2017-11-10 14:58 | Emergency (ER) | payer OTHER ==
[~2017-11-10] VITALS: Ht 157.5 cm; Wt 73.0 kg
[2017-11-10 15:10] VITALS: BP_SYST 164
[2017-11-10 16:32] LABS: BASOPHILS # (AUTO) 0.1 K/uL (0.0-0.2); BASOPHILS % (AUTO) 1.5 % (0.0-2.0); EOSINOPHILS # (AUTO) 0.3 K/uL (0.0-0.4); EOSINOPHILS % (AUTO) 5.7 % (0.0-4.0); HEMATOCRIT 45.6 % (36-48); HEMOGLOBIN 14.9 g/dL (12.0-16.0); LYMPHOCYTES % (AUTO) 33.4 % (20.5-51.5); MEAN CORPUSCULAR HEMOGLOBIN 28 pg (27-31); MEAN CORPUSCULAR HGB CONC 33 % (32-36); MEAN CORPUSCULAR VOLUME 86 fL (79.0-98.0); MONOCYTES # (AUTO) 0.3 K/uL (0.0-1.0); MONOCYTES % (AUTO) 5.1 % (1.7-9.3); NEUTROPHILS # (AUTO) 3.4 K/uL (1.8-7.7); NEUTROPHILS % (AUTO) 54.3 % (40.0-70.0); PLATELET COUNT (AUTO) 233 K/uL (130-430); RED BLOOD CELL COUNT(AUTO) 5.28 MIL/uL (4.2-6.2); WHITE BLOOD COUNT (AUTO) 6.1 K/uL (4.8-10.8)
[2017-11-10 16:40] LABS: CALCIUM 9.5 mg/dL (8.4-11.0); CREATININE 0.69 mg/dL (0.55-1.30); POTASSIUM 3.4 mmol/L (3.5-5.1)
[2017-11-10 16:45] LABS: ALBUMIN 4.3 g/dL (3.4-4.8); TOTAL BILIRUBIN 0.4 mg/dL (0.0-1.0)
[2017-11-10 18:18] VITALS: BP_SYST 146
== END 2017-11-10 17:42 | disposition home or self-care (01) ==
LOC: SED 14:58
DX: R19.7 Diarrhea, unspecified (principal); F41.9 Anxiety disorder, unspecified; I10 Essential (primary) hypertension; K21.9 Gastro-esophageal reflux disease without esophagitis; K27.9 Peptic ulcer, site unspecified, unspecified as acute or chronic, without hemorrhage or perforation; Z79.899 Other long term (current) drug therapy; Z88.1 Allergy status to other antibiotic agents; Z88.7 Allergy status to serum and vaccine
CPT/HCPCS: 36415; 74021; 80053; 83690-TC; 85025; 99285

== ENCOUNTER 2017-12-16 12:51 | Emergency (ER) | payer OTHER ==
[~2017-12-16] VITALS: Ht 160 cm; Wt 77.1 kg
[2017-12-16 13:01] VITALS: BP_SYST 164
[2017-12-16] MEDS ORDERED: NACL 0.9% 1,000 ML IV ONE (13:03)
[2017-12-16] MEDS ORDERED: MORPHINE 4 MG/ML INJ. SYRINGE IVP ONE (13:15)
[2017-12-16] MEDS ORDERED: ASPIRIN 81 MG TAB.CHEW PO ONE (13:15)
[2017-12-16] MEDS ORDERED: CLOPIDOGREL BISULFATE 75 MG TABLET PO ONE (13:15)
[2017-12-16] MEDS ORDERED: ONDANSETRON HCL 4 MG/2 ML VIAL IVP ONE ×2 (13:15→15:30)
[2017-12-16 13:25] LABS: BASOPHILS # (AUTO) 0.1 K/uL (0.0-0.2); BASOPHILS % (AUTO) 1.9 % (0.0-2.0); EOSINOPHILS # (AUTO) 0.4 K/uL (0.0-0.4); EOSINOPHILS % (AUTO) 5.7 % (0.0-4.0); HEMATOCRIT 45.3 % (36-48); HEMOGLOBIN 14.7 g/dL (12.0-16.0); LYMPHOCYTES # (AUTO) 2.1 K/uL (1.0-5.5); LYMPHOCYTES % (AUTO) 29.8 % (20.5-51.5); MEAN CORPUSCULAR HEMOGLOBIN 29 pg (27-31); MEAN CORPUSCULAR HGB CONC 32 % (32-36); MEAN CORPUSCULAR VOLUME 88 fL (79.0-98.0); MONOCYTES # (AUTO) 0.4 K/uL (0.0-1.0); MONOCYTES % (AUTO) 5.7 % (1.7-9.3); NEUTROPHILS # (AUTO) 3.9 K/uL (1.8-7.7); NEUTROPHILS % (AUTO) 56.9 % (40.0-70.0); PLATELET COUNT (AUTO) 226 K/uL (130-430); RED BLOOD CELL COUNT(AUTO) 5.15 MIL/uL (4.2-6.2); RED CELL DISTRIBUTION WIDTH 13.6 % (9.0-15.0); WHITE BLOOD COUNT (AUTO) 6.9 K/uL (4.8-10.8)
[2017-12-16 13:39] LABS: CALCIUM 9.2 mg/dL (8.4-11.0); CREATININE 0.65 mg/dL (0.55-1.30); POTASSIUM 3.5 mmol/L (3.5-5.1)
[2017-12-16 13:45] LABS: TOTAL BILIRUBIN 0.4 mg/dL (0.0-1.0)
[2017-12-16 15:40] VITALS: BP_SYST 145
== END 2017-12-16 14:48 | disposition home or self-care (01) ==
LOC: SED 12:51
DX: K52.9 Noninfective gastroenteritis and colitis, unspecified (principal); I10 Essential (primary) hypertension; K21.9 Gastro-esophageal reflux disease without esophagitis; Z88.1 Allergy status to other antibiotic agents; Z88.8 Allergy status to other drugs, medicaments and biological substances; Z79.899 Other long term (current) drug therapy
CPT/HCPCS: 36415; 71045; 80053; 82550; 83690; 84484; 85025; 85610; 85730; 89055; 93005; 96361; 96374; 96375; 96376; 99285; J2270; J2405; J7030

== ENCOUNTER 2018-01-16 00:22 | Emergency (ER) | payer OTHER ==
[~2018-01-16] VITALS: Ht 160 cm; Wt 77.1 kg
[2018-01-16 00:50] VITALS: BP_SYST 168
[2018-01-16] MEDS ORDERED: DIAZ10TA4 PO (00:59)
[2018-01-16] MEDS ORDERED: ONDANSETRON HCL 4 MG/2 ML VIAL IVP ONE (01:15)
[2018-01-16] MEDS ORDERED: MAG HYDROX/AL HYDROX/SIMETH 30 ML, BELLADONNA ALKALOIDS/PHENOBARB 10 ML, LIDOCAINE VISC... PO ONE ×3 (01:15)
[2018-01-16 01:58] LABS: BASOPHILS # (AUTO) 0.2 K/uL (0.0-0.2); BASOPHILS % (AUTO) 1.9 % (0.0-2.0); EOSINOPHILS # (AUTO) 0.5 K/uL (0.0-0.4); EOSINOPHILS % (AUTO) 6.1 % (0.0-4.0); HEMATOCRIT 44.5 % (36-48); HEMOGLOBIN 14.4 g/dL (12.0-16.0); LYMPHOCYTES # (AUTO) 3.2 K/uL (1.0-5.5); LYMPHOCYTES % (AUTO) 37.9 % (20.5-51.5); MEAN CORPUSCULAR HEMOGLOBIN 28 pg (27-31); MEAN CORPUSCULAR HGB CONC 32 % (32-36); MEAN CORPUSCULAR VOLUME 88 fL (79.0-98.0); MONOCYTES # (AUTO) 0.5 K/uL (0.0-1.0); NEUTROPHILS % (AUTO) 48.1 % (40.0-70.0); PLATELET COUNT (AUTO) 262 K/uL (130-430); RED BLOOD CELL COUNT(AUTO) 5.07 MIL/uL (4.2-6.2); RED CELL DISTRIBUTION WIDTH 13.6 % (9.0-15.0); WHITE BLOOD COUNT (AUTO) 8.4 K/uL (4.8-10.8)
[2018-01-16 02:09] LABS: CALCIUM 9.1 mg/dL (8.4-11.0); CREATININE 0.85 mg/dL (0.55-1.30); POTASSIUM 3.2 mmol/L (3.5-5.1)
[2018-01-16 02:13] LABS: ALBUMIN 4.1 g/dL (3.4-4.8); TOTAL BILIRUBIN 0.3 mg/dL (0.0-1.0)
[2018-01-16] MEDS ORDERED: POTASSIUM CHLORIDE 10 MEQ TAB.PRT.SR PO ONE (02:15)
[2018-01-16 02:57] LABS: BILIRUBIN,URINE NEGATIVE (NEGATIVE); BLOOD, URINE NEGATIVE (NEGATIVE); CLARITY/URINE CLEAR (CLEAR); COLOR,URINE YELLOW (YELLOW); GLUCOSE,URINE NEGATIVE (NEGATIVE); KETONES,URINE NEGATIVE (NEGATIVE); LEUKOCYTE ESTERASE ,URINE NEGATIVE (NEGATIVE); NITRITE, URINE NEGATIVE (NEGATIVE); PROTEIN URINE NEGATIVE (NEGATIVE); UROBILINOGEN,URINE 0.2 (0.2-1.0)
[2018-01-16] MEDS ORDERED: MORPHINE 4 MG/ML INJ. SYRINGE IVP ONE (03:00)
[2018-01-16 03:30] VITALS: BP_SYST 144
== END 2018-01-16 03:30 | disposition home or self-care (01) ==
LOC: SED 00:22
DX: K29.70 Gastritis, unspecified, without bleeding (principal); E87.6 Hypokalemia; K21.9 Gastro-esophageal reflux disease without esophagitis; I10 Essential (primary) hypertension; Z90.710 Acquired absence of both cervix and uterus; Z88.1 Allergy status to other antibiotic agents; Z88.7 Allergy status to serum and vaccine; Z79.899 Other long term (current) drug therapy
CPT/HCPCS: 36415; 80053; 81003; 83690; 85025; 96374; 96375; 99283; J2001; J2270; J2405

== ENCOUNTER 2018-04-08 22:02 | Emergency (ER) | payer OTHER ==
[~2018-04-08] VITALS: Ht 160 cm; Wt 77.1 kg
[~2018-04-08 22:02] MED LIST changes: +DIAZ10TA4 PO; -DIAZ5TAB4 PO; -FLA250 PO; -LEVO500T20 PO; -LORA-259 PO; -POTA20TA83 PO; +VITD2000 PO
[2018-04-08 22:15] VITALS: BP_SYST 160
--- NOTE | 2018-04-08 22:15 | NUR ---
Pt ambulatory to bed 4 for evaluation
--- NOTE | 2018-04-08 22:15 | NUR ---
Pt c/o generalized weakness, intermittent chest discomfort and abdominal pain, chills, nausea, heart burn that comes and goes, and rectal pain s/p colonoscopy on 03/22/2018.
--- NOTE | 2018-04-08 22:22 | NUR ---
ER Dr. Gaines at bedside examining patient.
[2018-04-08] MEDS ORDERED: ACETAMINOPHEN 500 MG TABLET PO ONE (22:45)
[2018-04-08] MEDS ORDERED: NS 1000 ML IV.SOLN IV ONE (22:45)
--- NOTE | 2018-04-08 22:55 | NUR ---
X-ray at bedside.
--- NOTE | 2018-04-08 23:03 | NUR ---
# 20 gauge angiocath placed to LAC. Use of asceptic technique. Opsite placed over site. Blood return noted. Blood for lab drawn from site. Flushed with 10 cc of normal saline. No evidence of infiltration noted. Patient tolerated well.
[2018-04-08 23:04] LABS: BILIRUBIN,URINE NEGATIVE (NEGATIVE); BLOOD, URINE NEGATIVE (NEGATIVE); CLARITY/URINE CLEAR (CLEAR); COLOR,URINE YELLOW (YELLOW); GLUCOSE,URINE NEGATIVE (NEGATIVE); KETONES,URINE NEGATIVE (NEGATIVE); LEUKOCYTE ESTERASE ,URINE NEGATIVE (NEGATIVE); NITRITE, URINE NEGATIVE (NEGATIVE); PH,URINE 6.5 (5.0-8.0); PROTEIN URINE NEGATIVE (NEGATIVE); UROBILINOGEN,URINE 0.2 (0.2-1.0)
[2018-04-08 23:35] LABS: HEMATOCRIT 42.1 % (36-48); HEMOGLOBIN 14.2 g/dL (12.0-16.0); MEAN CORPUSCULAR VOLUME 87 fL (79.0-98.0); RED BLOOD CELL COUNT(AUTO) 4.83 MIL/uL (4.2-6.2)
[2018-04-08 23:36] LABS: MEAN CORPUSCULAR HEMOGLOBIN 30 pg (27-31); MEAN CORPUSCULAR HGB CONC 34 % (32-36); NEUTROPHILS % (AUTO) 57.4 % (40.0-70.0); PLATELET COUNT (AUTO) 276 K/uL (130-430); RED CELL DISTRIBUTION WIDTH 14.8 % (9.0-15.0)
[2018-04-08 23:38] LABS: BASOPHILS # (AUTO) 0.1 K/uL (0.0-0.2); BASOPHILS % (AUTO) 0.8 % (0.0-2.0); EOSINOPHILS # (AUTO) 0.1 K/uL (0.0-0.4); EOSINOPHILS % (AUTO) 1.5 % (0.0-4.0); LYMPHOCYTES # (AUTO) 2.6 K/uL (1.0-5.5); LYMPHOCYTES % (AUTO) 32.7 % (20.5-51.5); MONOCYTES # (AUTO) 0.6 K/uL (0.0-1.0); MONOCYTES % (AUTO) 7.6 % (1.7-9.3); NEUTROPHILS # (AUTO) 4.6 K/uL (1.8-7.7)
[2018-04-08 23:41] LABS: CALCIUM 8.8 mg/dL (8.4-11.0); CREATININE 0.76 mg/dL (0.55-1.30); POTASSIUM 3.2 mmol/L (3.5-5.1)
[2018-04-08 23:46] LABS: ALBUMIN 3.9 g/dL (3.4-4.8); TOTAL BILIRUBIN 0.3 mg/dL (0.0-1.0)
--- NOTE | 2018-04-09 01:15 | NUR ---
Pt resting quietly on right side, even and non-labored respirations, VSS, NAD.
--- NOTE | 2018-04-09 02:10 | NUR ---
Pt requests more pain medications and medication to help her relax. Dr. Gaines notified.
[2018-04-09] MEDS ORDERED: KETOROLAC TROMETHAMINE 30 MG VIAL IVP ONE (02:15)
[2018-04-09] MEDS ORDERED: NACL 0.9% 1,000 ML IV ONE (02:15)
[2018-04-09] MEDS ORDERED: LORazepam 2 MG/ML VIAL (FOR ER USE) IVP ONE (02:15)
[2018-04-09] MEDS ORDERED: MORPHINE 4 MG/ML INJ. SYRINGE IVP ONE ×2 (04:00)
[2018-04-09] MEDS ORDERED: ONDANSETRON HCL 4 MG/2 ML VIAL IVP ONE ×2 (04:00)
[2018-04-09] MEDS ORDERED: MORPHINE SULFATE 10 MG/ML VIAL IVP ONE (04:15)
[2018-04-09 04:24] VITALS: BP_SYST 147
--- NOTE | 2018-04-09 04:24 | NUR ---
Patient given written and verbal discharge instructions and verbalizes understanding. ER MD discussed with patient the results and treatment provided. Patient in stable condition. ID arm band removed. IV catheter removed intact and dressing applied, no active bleeding. Patient educated on pain management and to follow up with PMD. Pain Scale 2/10. Opportunity for questions provided and answered. Medication side effect fact sheet provided.
== END 2018-04-09 04:23 | disposition home or self-care (01) ==
LOC: SED 22:02
DX: J06.9 Acute upper respiratory infection, unspecified (principal); R53.83 Other fatigue; K21.9 Gastro-esophageal reflux disease without esophagitis; I10 Essential (primary) hypertension; Z90.710 Acquired absence of both cervix and uterus; Z79.899 Other long term (current) drug therapy; Z88.1 Allergy status to other antibiotic agents; Z88.7 Allergy status to serum and vaccine
CPT/HCPCS: 36415; 71045; 80053; 81003; 83605; 84484; 85025; 85610; 87040; 87086; 93005; 96365; 96375; 96376; 99284; J1885; J1956; J2060; J2270 ×2; J2405; J7030 ×2; J7040

== ENCOUNTER 2018-05-22 09:28 | Emergency (ER) | payer OTHER ==
[~2018-05-22] VITALS: Ht 165.1 cm; Wt 78.9 kg
[2018-05-22 09:31] VITALS: BP_SYST 167
[2018-05-22] MEDS ORDERED: KETOROLAC TROMETHAMINE 60 MG/2 ML VIAL IM ONE (10:00)
[2018-05-22] MEDS ORDERED: KETAMINE 30 MG/3 ML SYRINGE 25 MG in NS 100 ML IV ONE (11:00)
[2018-05-22] MEDS ORDERED: fentaNYL CITRATE/PF 100 MCG/2 ML AMP IVP ONE (11:00)
[2018-05-22] MEDS ORDERED: KETAMINE 30 MG/3 ML SYRINGE ONE (11:14)
[2018-05-22 13:41] VITALS: BP_SYST 145
== END 2018-05-22 13:40 | disposition home or self-care (01) ==
LOC: SED 09:28
DX: M25.561 Pain in right knee (principal); G89.29 Other chronic pain; K21.9 Gastro-esophageal reflux disease without esophagitis; I10 Essential (primary) hypertension; M79.7 Fibromyalgia; Z90.710 Acquired absence of both cervix and uterus; Z98.51 Tubal ligation status; Z88.1 Allergy status to other antibiotic agents; Z88.7 Allergy status to serum and vaccine; Z79.899 Other long term (current) drug therapy
CPT/HCPCS: 73560; 93971; 96365; 96368; 96372; 99284; J1885; J3010; 96375

== ENCOUNTER 2018-06-15 04:57 | Inpatient (IN) | payer OTHER ==
[~2018-06-15] VITALS: Ht 157.5 cm; Wt 68.9 kg
[2018-06-15 05:00] VITALS: BP_SYST 158
--- NOTE | 2018-06-15 05:10 | NUR ---
0510 - Assumed care of pt. Pt states suprapubic abd pain, described as cramping or "labor pains" x 1 week. Denies n/v, states diff urinating and having BM. A&OX4. States she takes norco for chronic back pain. Also reports cystic left kidney
--- NOTE | 2018-06-15 05:10 | NUR ---
0510 - Patient to ER bed 7 to gown for evaluation. Side rails up.
--- NOTE | 2018-06-15 05:20 | NUR ---
0520 - ER at bedside examining patient.
--- NOTE | 2018-06-15 05:50 | NUR ---
0550 - Bladder scan estimated 743mL.
[2018-06-15 05:52] LABS: BASOPHILS # (AUTO) 0.1 K/uL (0.0-0.2); BASOPHILS % (AUTO) 0.6 % (0.0-2.0); EOSINOPHILS # (AUTO) 0.6 K/uL (0.0-0.4); EOSINOPHILS % (AUTO) 5.5 % (0.0-4.0); HEMATOCRIT 40.2 % (36-48); HEMOGLOBIN 13.4 g/dL (12.0-16.0); LYMPHOCYTES # (AUTO) 2.7 K/uL (1.0-5.5); LYMPHOCYTES % (AUTO) 26.5 % (20.5-51.5); MEAN CORPUSCULAR HEMOGLOBIN 29 pg (27-31); MEAN CORPUSCULAR HGB CONC 33 % (32-36); MEAN CORPUSCULAR VOLUME 88 fL (79.0-98.0); MONOCYTES # (AUTO) 0.6 K/uL (0.0-1.0); MONOCYTES % (AUTO) 6.2 % (1.7-9.3); NEUTROPHILS # (AUTO) 6.2 K/uL (1.8-7.7); NEUTROPHILS % (AUTO) 61.2 % (40.0-70.0); PLATELET COUNT (AUTO) 217 K/uL (130-430); RED BLOOD CELL COUNT(AUTO) 4.58 MIL/uL (4.2-6.2); RED CELL DISTRIBUTION WIDTH 14.7 % (9.0-15.0); WHITE BLOOD COUNT (AUTO) 10.1 K/uL (4.8-10.8)
[2018-06-15 06:06] LABS: CALCIUM 8.9 mg/dL (8.4-11.0); CREATININE 0.75 mg/dL (0.55-1.30); POTASSIUM 3.8 mmol/L (3.5-5.1)
[2018-06-15 06:11] LABS: ALBUMIN 3.6 g/dL (3.4-4.8); TOTAL BILIRUBIN 0.2 mg/dL (0.0-1.0)
[2018-06-15] MEDS ORDERED: LIDOCAINE VISCOUS 2%, 15 ML UDC MM ONE (06:15)
--- NOTE | 2018-06-15 06:35 | NUR ---
0635 - Urine collected on 2nd attempt of mckee catheter.
[2018-06-15 06:40] LABS: BILIRUBIN,URINE NEGATIVE (NEGATIVE); BLOOD, URINE NEGATIVE (NEGATIVE); CLARITY/URINE CLEAR (CLEAR); COLOR,URINE YELLOW (YELLOW); GLUCOSE,URINE NEGATIVE (NEGATIVE); KETONES,URINE NEGATIVE (NEGATIVE); LEUKOCYTE ESTERASE ,URINE NEGATIVE (NEGATIVE); NITRITE, URINE NEGATIVE (NEGATIVE); PROTEIN URINE NEGATIVE (NEGATIVE); UROBILINOGEN,URINE 0.2 (0.2-1.0)
[2018-06-15] MEDS ORDERED: KETOROLAC TROMETHAMINE 30 MG VIAL IM ONE (07:15)
--- NOTE | 2018-06-15 07:16 | NUR ---
0716 - Report given to CARISSA Davis. All questions answered. Aware of waiting for call back from Dr. Carcamo
--- NOTE | 2018-06-15 07:41 | NUR ---
# 20 gauge angiocath placed to LEFT HAND. Use of asceptic technique. Opsite placed over site. Blood return noted. Flushed with 10 cc of normal saline. No evidence of infiltration noted. Patient tolerated well.
--- NOTE | 2018-06-15 08:00 | NUR ---
ADMISSION NOTE Received patient from ER via gurney. Patient admitted with diagnosis of urinary retention. Patient is awake, alert, oriented X 4. Patient oriented to hospital room, call light, toileting, pain management and safety-teach back done. Patient informed that Torie will be her nurse and that their room number is . Personal belongings checked and Belongings List documented. Call light within reach.
--- NOTE | 2018-06-15 08:05 | NUR ---
Patient admitted to care of DR WYNNE. Admitted to [facility] room 108A. Belongings list completed. Summary report printed. Patient placed in bed 108A, no signs of distress noted, patient tolerated well with minimal discomfort. Bedside SBAR report was given and plan of care was endorsed to [facility] RN.
[2018-06-15] MEDS: HYDROmorphone 1 MG INJ. 1 MG/ML AMPUL IVP PRN ×2 (08:26→14:28)
--- NOTE | 2018-06-15 08:27 | NUR ---
CONSULTATION PAGED REASON FOR CONSULTATION:URINARY RETENTION WAS CONSULT CALLED?Y PERSON WHO WAS NOTIFIED:NICOLE CONSULTING PHYSICIAN:ELO WATKINS DISPATCHER RADIOACTIVE WASTE DISPOSAL SPECIALTY:UROLOGY DISPATCHER RADIOACTIVE WASTE DISPOSAL PHONE NUMBER:[phone] ORDERING PHYSICIAN:AILEEN FREEMAN
--- NOTE | 2018-06-15 08:35 | NUR ---
CONSULTATION PAGED/CALLED Reason for Consultation: [] URINARY RETENTION Person Who was Notified: [] CHRIS Consulting Physician: [] DR MESHA GASCA Blocklayer Specialty: [] UROLOGIST Ordering Physician: [] DR Jairon WYNNE
--- NOTE | 2018-06-15 08:35 | NUR ---
opening note patient is resting in bed, A&Ox4, assessment completed, educated on plan of care and call light system, patient verbalized understanding, mckee intact, IV line clean with no signs of infiltration, no other needs addressed at this time, fall.safety precautions in place, allergy band on.
[2018-06-15 08:44] VITALS: BP_SYST 157
[2018-06-15] MEDS: HYDROcodone/ACETAMIN 5-325 MG TAB (NORCO/ VICODIN) PO PRN ×2 (09:45→16:08)
[2018-06-15] MEDS ORDERED: ALPRAZolam 0.25 MG TABLET PO PRN (12:15)
--- NOTE | 2018-06-15 12:29 | NUR ---
Dr Carcamo paged in regards for orders, Dr Carcamo does not want to change the orders on her pain medication but okayed for order for anxiety, I informed the patient about this, educated her on xanax use and side effects, patient verbalized understanding, patient is sitting on the bed, fall/safety precautions in place.
[2018-06-15 12:30] VITALS: BP_SYST 144
[2018-06-15 16:00] VITALS: BP_SYST 151
--- NOTE | 2018-06-15 16:10 | NUR ---
rounds patient is sitting on her chair, patient was given pain medication for stated pain, informed patient that Dr Carcamo has not done his rounds yet, assisted patient to moving to room 112B, patient verbalized understanding.
[2018-06-15] MEDS ORDERED: MORPHINE 4 MG/ML INJ. SYRINGE ONE (18:24)
[2018-06-15 19:00] VITALS: BP_SYST 122
--- NOTE | 2018-06-15 19:00 | NUR ---
closing note patient is resting in bed, mckee was taken out per MD order and pain medication was given prior to removal, will endorse report to noc shift nurse about monitoring for urine output and that there is a standing order for mckee re-insertion if bladder scan shows greater than 800ml, no other needs addressed at this time, fall/safety precautions in place, no signs of distress.
[2018-06-15 20:00] VITALS: BP_SYST 122
[2018-06-15] MEDS: MORPHINE 4 MG/ML INJ. SYRINGE IVP PRN (20:55)
[2018-06-16 01:59] VITALS: BP_SYST 124; BP_SYST 151
[2018-06-16] MEDS: MORPHINE 4 MG/ML INJ. SYRINGE IVP PRN ×5 (02:36→21:48)
--- NOTE | 2018-06-16 06:23 | NUR ---
pt.has been assessed for urinary retention.i supplied a urine recepticle;hat.i apprised the pt.that w/in the shift.to provide the urine output w/in the recepticle.pt./has presented mictrition act:x5.pt.presents average;300ml's per mictrition.pt.has presented pain.pt.had requested medication;pain x2.i have administered morphine;4mg ivp.x2 doses.pt.is ambulatory;gait w/in normal limits.pt.has been provided w/snacks/beverages w/in the shift.no c/o nausea.general status stable.respiratory status stable.call light/telephone w/in the reach of the pt.w/in the shift.
[2018-06-16 07:50] VITALS: BP_SYST 140
--- NOTE | 2018-06-16 07:50 | NUR ---
INITIAL ROUNDS Received pt AAOx4, no s/s resp distress, c/o pain to abd-will give due pain medication. Plan of care for the day reviewed with pt-pt verbalized her understanding. Pain management, skin and safety discussed-teach back done. Call light within reach.
[2018-06-16] MEDS: CHOLECALCIFEROL (VITAMIN D3) 2,000 UNIT TABLET PO SCH (10:14)
[2018-06-16 12:02] VITALS: BP_SYST 149
[2018-06-16] MEDS: DIAZEPAM 5 MG TABLET (VALIUM) PO SCH ×2 (13:02→16:28)
--- NOTE | 2018-06-16 13:02 | NUR ---
MED NOT LATE Note that the patient's 0900 Valium is not overdue-just put in by pharmacy post clarification by .
[2018-06-16 16:02] VITALS: BP_SYST 150
--- NOTE | 2018-06-16 18:37 | NUR ---
CLOSING NOTE Pt resting quietly in bed with no s/s resp distress, no further c/o pain or discomfort. Pt with no further c/o anxiety. Needs met, call light within reach.
[2018-06-16 19:15] VITALS: BP_SYST 125
--- NOTE | 2018-06-16 19:15 | NUR ---
Start of shift notes Received patient in bed awake alert oriented x3. No c/o pain and no s/s of any distress noted. IV noted to R hand g 22 no infiltrate and with good blood return. BUE are strong and BLE are mildly weak, ambulatory. Discussed plan of care with anxiety and verbalized understanding. Will cont to monitor.
[2018-06-16] MEDS: HYDROcodone/ACETAMIN 10-325 MG TAB PO PRN (21:18)
[2018-06-17 00:13] VITALS: BP_SYST 119
[2018-06-17] MEDS: MORPHINE 4 MG/ML INJ. SYRINGE IVP PRN ×4 (01:51→14:03)
[2018-06-17] MEDS: HYDROcodone/ACETAMIN 10-325 MG TAB PO PRN ×2 (04:59→11:51)
--- NOTE | 2018-06-17 06:55 | NUR ---
End of shift note Patient is awake waiting for breakfast at this time. No c/o pain and no s/s of any distress noted. All needs met and anticipated by noc nurses.Call light in reach, will endorse to incoming nurse.
--- NOTE | 2018-06-17 06:55 | NUR ---
Rounds Assisted to b/r and safely back to bed. Will cont to monitor.
[2018-06-17 07:15] VITALS: BP_SYST 137
--- NOTE | 2018-06-17 07:15 | NUR ---
INITIAL ROUNDS Received pt AAOx4, no s/s resp distress, no c/o pain or discomfort. Plan of care for the day reviewed with pt-pt verbalized her understanding, hopes to be discharged home today. Pain management, disease process, skin and safety discussed-teach back done. Call light within reach.
[2018-06-17] MEDS: CHOLECALCIFEROL (VITAMIN D3) 2,000 UNIT TABLET PO SCH (10:05)
[2018-06-17] MEDS: DIAZEPAM 5 MG TABLET (VALIUM) PO SCH (10:06)
--- NOTE | 2018-06-17 10:45 | NUR ---
ROUNDS Pt resting quietly in bed with no s/s resp distress, no c/o pain or discomfort. Needs met, call light within reach.
[2018-06-17 12:02] VITALS: BP_SYST 140
[2018-06-17 13:49] VITALS: BP_SYST 140
[2018-06-17] MEDS ORDERED: SIMETHICONE 80 MG TAB.CHEW PO ONE (14:30)
--- NOTE | 2018-06-17 15:28 | NUR ---
PATIENT DISCHARGED Patient given medication reconciliation form and D/C instructions. Exit Care on Urinary Retention explained & provided. Patient verbalized her understanding. MD discussed with patient the results and treatment provided. Ambulatory with steady gait for discharge to home. Patient in stable condition, ID band removed. IV catheter removed, intact and dressing applied, no active bleeding.Patient educated on pain management & to drink prune juice. All belongings sent with patient. Patient left floor via wheelchair to private vehicle in no distress.
== END 2018-06-17 15:28 | disposition home or self-care (01) | DRG 696 ==
LOC: SED 04:57 → SMU 07:25
PROVIDERS: ADMIT Family Medicine; ATTEND Family Medicine
DX: R33.9 Retention of urine, unspecified (principal); F41.9 Anxiety disorder, unspecified; G89.29 Other chronic pain; R31.9 Hematuria, unspecified; I10 Essential (primary) hypertension; K21.9 Gastro-esophageal reflux disease without esophagitis; M19.90 Unspecified osteoarthritis, unspecified site; M79.7 Fibromyalgia; Z90.710 Acquired absence of both cervix and uterus; Z98.51 Tubal ligation status; Z88.1 Allergy status to other antibiotic agents; Z88.7 Allergy status to serum and vaccine
CPT/HCPCS: 36415; 80053; 81003; 85025; 96372; 99285; J1170; J1885; J2001; J2270

== ENCOUNTER 2018-07-29 13:42 | Emergency (ER) | payer OTHER ==
[~2018-07-29] VITALS: Ht 157.5 cm; Wt 68.9 kg
--- NOTE | 2018-07-29 13:55 | NUR ---
PLACED IN BED 8, ISIDRO MYERS- AT BEDSIDE EXAMINING
[2018-07-29 13:56] VITALS: BP_SYST 142
--- NOTE | 2018-07-29 14:02 | NUR ---
ER LUCIA Guy at bedside examining patient.
--- NOTE | 2018-07-29 14:05 | NUR ---
Pt AAOx4 presents to ED c/o 11/22 R knee and R ankle pain s/p trip and fall x 3 days ago. Pt reports she took [place] at 7am today. No other injuries/complaints per pt/noted. Will continue to monitor
[2018-07-29] MEDS ORDERED: CYCLOBENZAPRINE HCL 10 MG TABLET (FLEXERIL) PO ONE (14:15)
[2018-07-29] MEDS ORDERED: KETOROLAC TROMETHAMINE 30 MG VIAL IM ONE (14:30)
--- NOTE | 2018-07-29 15:34 | NUR ---
PT returned from radiology in stable condition
--- NOTE | 2018-07-29 16:00 | NUR ---
Knee immobilizer being applied by Angel TRUJILLO and nursing students
[2018-07-29 16:15] VITALS: BP_SYST 138
--- NOTE | 2018-07-29 16:15 | NUR ---
Patient given written and verbal discharge instructions and verbalizes understanding. ER LUCIA Guy discussed with patient the results and treatment provided. Patient in stable condition. ID arm band removed. Rx of Tramadol, Voltaren given. Patient educated on pain management and to follow up with PMD. Pain Scale 2. Opportunity for questions provided and answered. Medication side effect fact sheet provided.
== END 2018-07-29 16:15 | disposition home or self-care (01) ==
LOC: SED 13:42
DX: S83.91XA Sprain of unspecified site of right knee, initial encounter (principal); K21.9 Gastro-esophageal reflux disease without esophagitis; I10 Essential (primary) hypertension; M79.7 Fibromyalgia; F17.200 Nicotine dependence, unspecified, uncomplicated; Z90.710 Acquired absence of both cervix and uterus; Z88.1 Allergy status to other antibiotic agents; Z88.7 Allergy status to serum and vaccine; Z79.899 Other long term (current) drug therapy; W19.XXXA Unspecified fall, initial encounter; Y93.89 Activity, other specified; Y92.89 Other specified places as the place of occurrence of the external cause; Y99.8 Other external cause status
CPT/HCPCS: 29505; 73564; 73610; 96372; 99283; J1885

== ENCOUNTER 2018-09-08 08:57 | Emergency (ER) | payer OTHER ==
[~2018-09-08] VITALS: Ht 157.5 cm; Wt 68.0 kg
[2018-09-08 09:09] VITALS: BP_SYST 163
--- NOTE | 2018-09-08 09:15 | NUR ---
Patient to ER bed 2 to gown for evaluation. Side rails up. Report given to Shari FERRER.
--- NOTE | 2018-09-08 09:30 | NUR ---
Patient presented to ER with C/O dark red blood in stool x 1, w/nausea & diffuse abd pain. Patient A&Ox4, skin pink, ambulatory w/cane to ER, nausea, pain 10/10, respirations equall bilat. Patient states she has dark red blood in stool x 1, w/nausea with abd pain and difficulty voiding urine today. Patient has other chronic disorders: Fibromyalgia, Arthritis, opiod dependency.
[2018-09-08 09:50] LABS: BASOPHILS # (AUTO) 0.1 K/uL (0.0-0.2); EOSINOPHILS # (AUTO) 0.5 K/uL (0.0-0.4); EOSINOPHILS % (AUTO) 7.5 % (0.0-4.0); HEMOGLOBIN 13.8 g/dL (12.0-16.0); LYMPHOCYTES # (AUTO) 3.2 K/uL (1.0-5.5); LYMPHOCYTES % (AUTO) 43.9 % (20.5-51.5); MEAN CORPUSCULAR HEMOGLOBIN 30 pg (27-31); MEAN CORPUSCULAR HGB CONC 34 % (32-36); MEAN CORPUSCULAR VOLUME 88 fL (79.0-98.0); MONOCYTES # (AUTO) 0.4 K/uL (0.0-1.0); MONOCYTES % (AUTO) 5.6 % (1.7-9.3); NEUTROPHILS # (AUTO) 3.1 K/uL (1.8-7.7); PLATELET COUNT (AUTO) 246 K/uL (130-430); RED BLOOD CELL COUNT(AUTO) 4.68 MIL/uL (4.2-6.2); RED CELL DISTRIBUTION WIDTH 14.3 % (9.0-15.0); WHITE BLOOD COUNT (AUTO) 7.3 K/uL (4.8-10.8)
[2018-09-08 09:58] LABS: CALCIUM 9.3 mg/dL (8.4-11.0); CREATININE 0.72 mg/dL (0.55-1.30); POTASSIUM 3.5 mmol/L (3.5-5.1)
--- NOTE | 2018-09-08 10:01 | NUR ---
ER Dr. Sierra at bedside examining patient.
[2018-09-08 10:02] LABS: ALBUMIN 3.9 g/dL (3.4-4.8); TOTAL BILIRUBIN 0.3 mg/dL (0.0-1.0)
[2018-09-08] MEDS ORDERED: MAG HYDROX/AL HYDROX/SIMETH 30 ML, DICYCLOMINE HCL 20 MG, LIDOCAINE VISCOUS 2% 15ML (PO... PO ONE ×3 (10:45)
--- NOTE | 2018-09-08 11:11 | NUR ---
Medication administered. Pt tolerated well. No adverse reactions noted.
[2018-09-08 11:25] VITALS: BP_SYST 70
--- NOTE | 2018-09-08 11:25 | NUR ---
Patient given written and verbal discharge instructions and verbalizes understanding. ER MD discussed with patient the results and treatment provided. Patient in stable condition. ID arm band removed. Rx of Belladonna alkaloids w/phenobarbital given. Patient educated on pain management and to follow up with PMD. Pain Scale 4/10 tolerable for pt. . Opportunity for questions provided and answered. Medication side effect fact sheet provided.
== END 2018-09-08 11:25 | disposition home or self-care (01) ==
LOC: SED 08:57
DX: R10.9 Unspecified abdominal pain (principal); I10 Essential (primary) hypertension; K21.9 Gastro-esophageal reflux disease without esophagitis; Z90.710 Acquired absence of both cervix and uterus; Z88.0 Allergy status to penicillin; Z88.8 Allergy status to other drugs, medicaments and biological substances; Z79.899 Other long term (current) drug therapy
CPT/HCPCS: 36415; 74018; 80053; 81002; 83690; 85025; 99284; J2001

== ENCOUNTER 2018-11-01 01:08 | Emergency (ER) | payer OTHER ==
[~2018-11-01] VITALS: Ht 157.5 cm; Wt 67.6 kg
[2018-11-01 01:25] VITALS: BP_SYST 140
[2018-11-01] MEDS: MORPHINE 2 MG/ML INJ. SYRINGE IVP ONE ×4 (03:12→05:29)
[2018-11-01] MEDS: ONDANSETRON HCL 4 MG/2 ML VIAL IVP ONE (03:15)
[2018-11-01 03:22] LABS: BILIRUBIN,URINE 1+ (NEGATIVE); BLOOD, URINE NEGATIVE (NEGATIVE); CLARITY/URINE CLEAR (CLEAR); COLOR,URINE ORANGE (YELLOW); GLUCOSE,URINE NEGATIVE (NEGATIVE); KETONES,URINE TRACE (NEGATIVE); LEUKOCYTE ESTERASE ,URINE NEGATIVE (NEGATIVE); NITRITE, URINE NEGATIVE (NEGATIVE); PROTEIN URINE TRACE (NEGATIVE)
[2018-11-01 03:24] LABS: BASOPHILS # (AUTO) 0.1 K/uL (0.0-0.2); BASOPHILS % (AUTO) 0.3 % (0.0-2.0); EOSINOPHILS # (AUTO) 0.2 K/uL (0.0-0.4); EOSINOPHILS % (AUTO) 1.1 % (0.0-4.0); HEMOGLOBIN 14.9 g/dL (12.0-16.0); LYMPHOCYTES # (AUTO) 1.5 K/uL (1.0-5.5); LYMPHOCYTES % (AUTO) 8.4 % (20.5-51.5); MEAN CORPUSCULAR HEMOGLOBIN 29 pg (27-31); MEAN CORPUSCULAR HGB CONC 33 % (32-36); MEAN CORPUSCULAR VOLUME 89 fL (79.0-98.0); MONOCYTES # (AUTO) 0.2 K/uL (0.0-1.0); MONOCYTES % (AUTO) 0.9 % (1.7-9.3); NEUTROPHILS # (AUTO) 15.4 K/uL (1.8-7.7); NEUTROPHILS % (AUTO) 89.3 % (40.0-70.0); PLATELET COUNT (AUTO) 234 K/uL (130-430); RED BLOOD CELL COUNT(AUTO) 5.06 MIL/uL (4.2-6.2); RED CELL DISTRIBUTION WIDTH 15.2 % (9.0-15.0); WHITE BLOOD COUNT (AUTO) 17.3 K/uL (4.8-10.8)
[2018-11-01 03:29] LABS: BACTERIA,URINE RARE /HPF (None Seen); RBC,URINE 0-3 /HPF (0-3); WBC,URINE 0-3 /HPF (0-3)
[2018-11-01 03:37] LABS: ANION GAP 10 (5-15); CALCIUM 9.3 mg/dL (8.4-11.0); CHLORIDE 110 mmol/L (98-107); CREATININE 0.87 mg/dL (0.55-1.30); GLUCOSE 108 mg/dL (70-99); POTASSIUM 3.7 mmol/L (3.5-5.1); SODIUM SERUM 147 mmol/L (136-145); UREA NITROGEN, BLOOD 13 mg/dL (8-21)
[2018-11-01 03:42] LABS: PROTHROMBIN TIME 9.8 SECS (9.5-12.5)
[2018-11-01 03:45] LABS: ALANINE AMINOTRANSFERASE 30 U/L (12-78); ALBUMIN 4.1 g/dL (3.4-4.8); ASPARTATE AMINOTRANSFERASE 33 U/L (10-37); LIPASE 192 U/L (73-393); TOTAL BILIRUBIN 0.4 mg/dL (0.0-1.0)
[2018-11-01 03:46] LABS: GFR AFRICAN AMERICAN 86 mL/min (>90)
[2018-11-01] MEDS: LEVOFLOXACIN 500 MG TABLET PO ONE (05:27)
[2018-11-01 05:42] VITALS: BP_SYST 139
== END 2018-11-01 05:41 | disposition home or self-care (01) ==
LOC: SED 01:08
DX: K52.9 Noninfective gastroenteritis and colitis, unspecified (principal); K21.9 Gastro-esophageal reflux disease without esophagitis; I10 Essential (primary) hypertension; M79.7 Fibromyalgia; Z88.1 Allergy status to other antibiotic agents; Z88.7 Allergy status to serum and vaccine; Z79.899 Other long term (current) drug therapy
CPT/HCPCS: 36415; 74176; 80053; 81000; 83690; 84484; 85025; 85610; 85730; 93005; 96374; 96375; 96376; 99284; J2270; J2405

== ENCOUNTER 2018-11-02 08:43 | Emergency (ER) | payer OTHER ==
[~2018-11-02] VITALS: Ht 157.5 cm; Wt 67.6 kg
[2018-11-02 09:11] VITALS: BP_SYST 159
--- NOTE | 2018-11-02 09:14 | NUR ---
Patient to ER bed 06 to gown for evaluation. Side rails up.
[2018-11-02] MEDS ORDERED: MORPHINE 2 MG/ML INJ. SYRINGE IVP ONE (09:30)
[2018-11-02] MEDS ORDERED: ONDANSETRON HCL 4 MG/2 ML VIAL IVP ONE ×2 (09:30→11:45)
[2018-11-02] MEDS ORDERED: NACL 0.9% 1,000 ML IV ONE (09:30)
--- NOTE | 2018-11-02 09:40 | NUR ---
Patient presented to ER with abdominal pain. Patient A&Ox4, afebrile, ambulatory to ER, Patient arrived with , pain 8/,nausea, diarrhea, denies emesis today. Patient states abdominal pain with Diarrhea x3 days. Patient states she was seen here [facility] ER Monday night and given ABX. Patient states abdominal pain continues, PO food with diarrhea, currently on ABX.
--- NOTE | 2018-11-02 09:41 | NUR ---
ER at bedside examining patient.
[2018-11-02 10:18] LABS: BASOPHILS % (AUTO) 0.4 % (0.0-2.0); EOSINOPHILS # (AUTO) 0.2 K/uL (0.0-0.4); EOSINOPHILS % (AUTO) 2.1 % (0.0-4.0); HEMATOCRIT 42.6 % (36-48); HEMOGLOBIN 14.4 g/dL (12.0-16.0); LYMPHOCYTES # (AUTO) 1.2 K/uL (1.0-5.5); LYMPHOCYTES % (AUTO) 11.7 % (20.5-51.5); MEAN CORPUSCULAR HEMOGLOBIN 30 pg (27-31); MEAN CORPUSCULAR HGB CONC 34 % (32-36); MEAN CORPUSCULAR VOLUME 88 fL (79.0-98.0); MONOCYTES # (AUTO) 0.5 K/uL (0.0-1.0); MONOCYTES % (AUTO) 4.7 % (1.7-9.3); NEUTROPHILS # (AUTO) 8.6 K/uL (1.8-7.7); NEUTROPHILS % (AUTO) 81.1 % (40.0-70.0); PLATELET COUNT (AUTO) 220 K/uL (130-430); RED BLOOD CELL COUNT(AUTO) 4.82 MIL/uL (4.2-6.2); RED CELL DISTRIBUTION WIDTH 14.8 % (9.0-15.0); WHITE BLOOD COUNT (AUTO) 10.6 K/uL (4.8-10.8)
[2018-11-02 10:34] LABS: CALCIUM 8.7 mg/dL (8.4-11.0); CREATININE 0.69 mg/dL (0.55-1.30); POTASSIUM 3.9 mmol/L (3.5-5.1)
[2018-11-02 10:39] LABS: ALBUMIN 3.9 g/dL (3.4-4.8); TOTAL BILIRUBIN 0.5 mg/dL (0.0-1.0)
--- NOTE | 2018-11-02 11:25 | NUR ---
Patient to ER bed 6 from radiology
[2018-11-02] MEDS ORDERED: KETOROLAC TROMETHAMINE 30 MG VIAL IVP ONE (11:45)
--- NOTE | 2018-11-02 12:02 | NUR ---
report to Onur FERRER
[2018-11-02 12:15] VITALS: BP_SYST 143
--- NOTE | 2018-11-02 12:15 | NUR ---
Patient given written and verbal discharge instructions and verbalizes understanding. ER MD discussed with patient the results and treatment provided. Patient in stable condition. ID arm band removed. IV catheter removed intact and dressing applied, no active bleeding. Rx of given. Patient educated on pain management and to follow up with PMD. Pain Scale 2/10 tolerable for patient. Opportunity for questions provided and answered. Medication side effect fact sheet provided.
== END 2018-11-02 12:15 | disposition home or self-care (01) ==
LOC: SED 08:43
DX: G89.29 Other chronic pain (principal); R10.10 Upper abdominal pain, unspecified; R10.30 Lower abdominal pain, unspecified; R11.0 Nausea; I10 Essential (primary) hypertension; K76.89 Other specified diseases of liver; Z88.0 Allergy status to penicillin; Z88.1 Allergy status to other antibiotic agents; Z88.7 Allergy status to serum and vaccine
CPT/HCPCS: 36415; 74176; 80053; 81002; 83690; 85025; 87040; 96374; 96375; 96376; 99284; J1885; J2270; J2405; J7030

== ENCOUNTER 2019-01-15 17:11 | Inpatient (IN) | payer OTHER ==
[~2019-01-15] VITALS: Ht 154.9 cm; Wt 68.0 kg
[2019-01-15] MEDS: POTASSIUM CHLORIDE 20 MEQ in D5/0.45 NS 1,000 ML IV SCH (00:32)
[2019-01-15 17:25] VITALS: BP_SYST 179
[2019-01-15] MEDS ORDERED: KETOROLAC TROMETHAMINE 30 MG VIAL IVP ONE (18:00)
[2019-01-15] MEDS ORDERED: MAG HYDROX/AL HYDROX/SIMETH 30 ML, DICYCLOMINE HCL 20 MG, LIDOCAINE VISCOUS 2% 15ML (PO... PO ONE ×3 (18:00)
[2019-01-15] MEDS ORDERED: NACL 0.9% 1,000 ML IV ONE (18:00)
[2019-01-15 18:13] LABS: EOSINOPHILS # (AUTO) 0.3 K/uL (0.0-0.4); EOSINOPHILS % (AUTO) 3.5 % (0.0-4.0); HEMATOCRIT 41.7 % (36-48); HEMOGLOBIN 14.1 g/dL (12.0-16.0); LYMPHOCYTES # (AUTO) 2.7 K/uL (1.0-5.5); LYMPHOCYTES % (AUTO) 36.5 % (20.5-51.5); MEAN CORPUSCULAR HEMOGLOBIN 29 pg (27-31); MEAN CORPUSCULAR HGB CONC 34 % (32-36); MEAN CORPUSCULAR VOLUME 87 fL (79.0-98.0); MONOCYTES # (AUTO) 0.4 K/uL (0.0-1.0); MONOCYTES % (AUTO) 5.4 % (1.7-9.3); PLATELET COUNT (AUTO) 228 K/uL (130-430); RED CELL DISTRIBUTION WIDTH 14.7 % (9.0-15.0); WHITE BLOOD COUNT (AUTO) 7.3 K/uL (4.8-10.8)
[2019-01-15 18:16] LABS: BASOPHILS % (AUTO) 0.3 % (0.0-2.0); NEUTROPHILS % (AUTO) 54.3 % (40.0-70.0)
[2019-01-15 19:23] LABS: ALBUMIN 3.7 g/dL (3.4-4.8); CALCIUM 8.6 mg/dL (8.4-11.0); POTASSIUM 3.2 mmol/L (3.5-5.1); TOTAL BILIRUBIN 0.3 mg/dL (0.0-1.0)
[2019-01-15 19:28] LABS: CREATININE 0.58 mg/dL (0.55-1.30)
[2019-01-15] MEDS ORDERED: POTASSIUM CHLORIDE 20 MEQ/PKT PACKET PO ONE (19:45)
[2019-01-15] MEDS ORDERED: POLY17PO4 PO (19:46)
[2019-01-15] MEDS ORDERED: SACCHAROMYCES BOULARDII 250 MG CAPSULE (FLORASTOR) PO SCH (21:00)
[2019-01-15] MEDS ORDERED: POLYETHYLENE GLYCOL 3350, 17 GM/ POWD.PACK PO PRN (21:00)
[2019-01-15] MEDS ORDERED: DICYCLOMINE HCL 20 MG/2 ML AMP IM ONE (21:15)
[2019-01-15 22:28] VITALS: BP_SYST 196
[2019-01-16] MEDS: HYDROcodone/ACETAMIN 10-325 MG TAB PO PRN ×5 (00:20→22:17)
[2019-01-16] MEDS ORDERED: KCL 20 mEq in D5/0.45NS 1000mL 1,000 ML IV ONE (00:39)
[2019-01-16 05:36] VITALS: BP_SYST 135
[2019-01-16 08:00] VITALS: BP_SYST 141
[2019-01-16] MEDS: LACTOBACILLUS RHAMNOSUS GG 1 CAP CAPSULE PO SCH ×2 (08:46→22:29)
[2019-01-16] MEDS: CHOLECALCIFEROL (VITAMIN D3) 2,000 UNIT TABLET PO SCH (08:49)
[2019-01-16] MEDS: DIAZEPAM 5 MG TABLET (VALIUM) PO SCH (08:50)
[2019-01-16 08:55] VITALS: BP_SYST 141
[2019-01-16] MEDS: POTASSIUM CHLORIDE 20 MEQ in D5/0.45 NS 1,000 ML IV SCH (10:00)
[2019-01-16 12:00] VITALS: BP_SYST 148
[2019-01-16 16:00] VITALS: BP_SYST 139
[2019-01-16] MEDS: KETOROLAC TROMETHAMINE 15 MG VIAL IVP PRN (18:06)
[2019-01-16] MEDS ORDERED: POTASSIUM CHLORIDE 20 MEQ TAB.PRT.SR PO ONE (20:45)
[2019-01-16 22:27] VITALS: BP_SYST 148
[2019-01-16] MEDS: busPIRone HCL 5 MG TABLET PO SCH (22:29)
[2019-01-16] MEDS: ENOXAPARIN SODIUM 40 MG/0.4 ML SYRINGE SUBCUT SCH (22:32)
[2019-01-17] MEDS: KETOROLAC TROMETHAMINE 15 MG VIAL IVP PRN (00:57)
[2019-01-17] MEDS: POTASSIUM CHLORIDE 20 MEQ in D5/0.45 NS 1,000 ML IV SCH ×2 (01:04→17:28)
[2019-01-17 01:35] VITALS: BP_SYST 149
[2019-01-17] MEDS: HYDROcodone/ACETAMIN 10-325 MG TAB PO PRN (04:51)
[2019-01-17] MEDS: CHOLECALCIFEROL (VITAMIN D3) 2,000 UNIT TABLET PO SCH (09:00)
[2019-01-17] MEDS: LACTOBACILLUS RHAMNOSUS GG 1 CAP CAPSULE PO SCH ×2 (09:00→21:00)
[2019-01-17] MEDS: busPIRone HCL 5 MG TABLET PO SCH ×3 (09:00→21:00)
[2019-01-17] MEDS: DIAZEPAM 5 MG TABLET (VALIUM) PO SCH (09:00)
[2019-01-17] MEDS: ENOXAPARIN SODIUM 40 MG/0.4 ML SYRINGE SUBCUT SCH (21:00)
[2019-01-18] MEDS: POTASSIUM CHLORIDE 20 MEQ in D5/0.45 NS 1,000 ML IV SCH ×2 (06:56→20:24)
[2019-01-18] MEDS: CHOLECALCIFEROL (VITAMIN D3) 2,000 UNIT TABLET PO SCH (09:00)
[2019-01-18] MEDS: LACTOBACILLUS RHAMNOSUS GG 1 CAP CAPSULE PO SCH ×2 (09:00→21:00)
[2019-01-18] MEDS: busPIRone HCL 5 MG TABLET PO SCH (09:00)
[2019-01-18] MEDS: DIAZEPAM 5 MG TABLET (VALIUM) PO SCH (09:00)
[2019-01-18 20:00] VITALS: BP_SYST 130
[2019-01-18] MEDS: ENOXAPARIN SODIUM 40 MG/0.4 ML SYRINGE SUBCUT SCH (21:00)
[2019-01-18] MEDS: KETOROLAC TROMETHAMINE 15 MG VIAL IVP PRN ×2 (21:44→23:56)
[2019-01-19 01:10] VITALS: BP_SYST 159
== END 2019-01-19 01:20 | disposition home or self-care (01) | DRG 641 ==
LOC: SED 17:11 → SMU 20:32
PROVIDERS: ADMIT Family Medicine; ATTEND Family Medicine
DX: E86.0 Dehydration (principal); F32.9 Major depressive disorder, single episode, unspecified; F41.9 Anxiety disorder, unspecified; K59.09 Other constipation; K21.9 Gastro-esophageal reflux disease without esophagitis; I10 Essential (primary) hypertension; G89.29 Other chronic pain; R10.9 Unspecified abdominal pain; M19.90 Unspecified osteoarthritis, unspecified site; Z87.891 Personal history of nicotine dependence; Z79.899 Other long term (current) drug therapy; Z88.1 Allergy status to other antibiotic agents; Z88.7 Allergy status to serum and vaccine
CPT/HCPCS: 36415; 74018; 80053; 83690-TC; 85025; 96361; 96372; 96374; 99285; J0500; J1650; J1885; J2001; J3480; J7030

== ENCOUNTER 2019-02-16 20:52 | Emergency (ER) | payer OTHER ==
[~2019-02-16] VITALS: Ht 157.5 cm; Wt 68.0 kg
[~2019-02-16 20:52] MED LIST changes: +POLY17PO4 PO
[2019-02-16 20:55] VITALS: BP_SYST 156
[2019-02-16 21:39] LABS: BASOPHILS # (AUTO) 0.1 K/uL (0.0-0.2); BASOPHILS % (AUTO) 1.2 % (0.0-2.0); EOSINOPHILS # (AUTO) 0.5 K/uL (0.0-0.4); EOSINOPHILS % (AUTO) 5.2 % (0.0-4.0); HEMOGLOBIN 14.3 g/dL (12.0-16.0); LYMPHOCYTES # (AUTO) 4.2 K/uL (1.0-5.5); LYMPHOCYTES % (AUTO) 44.2 % (20.5-51.5); MEAN CORPUSCULAR HEMOGLOBIN 29 pg (27-31); MEAN CORPUSCULAR HGB CONC 33 % (32-36); MEAN CORPUSCULAR VOLUME 88 fL (79.0-98.0); MONOCYTES # (AUTO) 0.5 K/uL (0.0-1.0); MONOCYTES % (AUTO) 4.9 % (1.7-9.3); NEUTROPHILS # (AUTO) 4.2 K/uL (1.8-7.7); NEUTROPHILS % (AUTO) 44.5 % (40.0-70.0); PLATELET COUNT (AUTO) 253 K/uL (130-430); RED BLOOD CELL COUNT(AUTO) 4.87 MIL/uL (4.2-6.2); RED CELL DISTRIBUTION WIDTH 14.4 % (9.0-15.0); WHITE BLOOD COUNT (AUTO) 9.5 K/uL (4.8-10.8)
[2019-02-16 21:48] LABS: ANION GAP 9 (5-15); CALCIUM 8.9 mg/dL (8.4-11.0); CHLORIDE 104 mmol/L (98-107); CREATININE 0.63 mg/dL (0.55-1.30); GLUCOSE 109 mg/dL (70-99); POTASSIUM 3.2 mmol/L (3.5-5.1); SODIUM SERUM 140 mmol/L (136-145); UREA NITROGEN, BLOOD 6 mg/dL (8-21)
--- NOTE | 2019-02-16 21:48 | NUR ---
Placed in room 2 . Placed on monitor worker, blood pressure machine and pulse oximeter. To gown for exam. Side rails up.
[2019-02-16 21:49] LABS: GFR AFRICAN AMERICAN 125 mL/min (>90)
[2019-02-16 21:55] LABS: ALANINE AMINOTRANSFERASE 28 U/L (12-78); ALBUMIN 4.2 g/dL (3.4-4.8); ASPARTATE AMINOTRANSFERASE 17 U/L (10-37); TOTAL BILIRUBIN 0.3 mg/dL (0.0-1.0)
--- NOTE | 2019-02-16 22:06 | NUR ---
Patient complains of left shoulder blade pain that radiates to upper left arm for the last week. Pt states she felt short of breath earlier today and started to cough a day ago. Pt denies fever, diarrhea, but c/o of nausea. Pt's O2 saturation on room air is 98%. Pt speaking in full sentences. No other injuries/complaints per patient or noted.
--- NOTE | 2019-02-16 22:33 | NUR ---
ER Dr. Payne at bedside examining patient.
[2019-02-16] MEDS ORDERED: LORazepam 2 MG/ML VIAL IM ONE (22:45)
--- NOTE | 2019-02-16 23:00 | NUR ---
Dr. Payne speaking with patient and explaining results.
[2019-02-17 00:27] VITALS: BP_SYST 148
--- NOTE | 2019-02-17 00:27 | NUR ---
Patient given written and verbal discharge instructions and verbalizes understanding. ER MD discussed with patient the results and treatment provided. Patient in stable condition. ID arm band removed. Rx of Xanax given. Patient educated on pain management and to follow up with PMD. Pain Scale 0. Opportunity for questions provided and answered. Medication side effect fact sheet provided.
== END 2019-02-17 00:27 | disposition home or self-care (01) ==
LOC: SED 20:52
DX: F41.9 Anxiety disorder, unspecified (principal); I10 Essential (primary) hypertension; K21.9 Gastro-esophageal reflux disease without esophagitis; Z88.0 Allergy status to penicillin; Z88.1 Allergy status to other antibiotic agents; Z79.899 Other long term (current) drug therapy
CPT/HCPCS: 36415; 71045; 80053; 84484; 85025; 93005; 96372; 99284; J2060

== ENCOUNTER 2019-03-13 16:46 | Emergency (ER) | payer OTHER ==
[~2019-03-13] VITALS: Ht 157.5 cm; Wt 70.3 kg
[2019-03-13 17:16] VITALS: BP_SYST 162
--- NOTE | 2019-03-13 17:25 | NUR ---
Patient triaged and placed in waiting room. VSS and patient appears in no acute distress at this time. Accompanied by , awaiting available bed, and MD notified of need for MSE.
--- NOTE | 2019-03-13 18:18 | NUR ---
PATIENT RECHECKED ABP; DISPOSITION TO ER BED PENDING; OTHERWISE UNCHANGED
--- NOTE | 2019-03-13 19:00 | NUR ---
Patient to ER bed 08 to gown for evaluation. Side rails up.
--- NOTE | 2019-03-13 19:15 | NUR ---
Lab at bedside.
--- NOTE | 2019-03-13 19:17 | NUR ---
ER Dr. Irwin at bedside examining patient.
--- NOTE | 2019-03-13 19:17 | NUR ---
Pt presents to ER with c/o abdominal pain, dizziness, constipation, and head pain. Pt A&Ox4. Pt states symptoms began around 11 am today. Pt states abdominal pain is 8/10. Pt states head pain 8/10. Pt states pain is aching and non radiating. Breath sounds unlabored and bilaterally clear. Will continue to monitor.
[2019-03-13 19:24] LABS: BASOPHILS # (AUTO) 0.1 K/uL (0.0-0.2); BASOPHILS % (AUTO) 0.7 % (0.0-2.0); EOSINOPHILS # (AUTO) 0.1 K/uL (0.0-0.4); EOSINOPHILS % (AUTO) 1.2 % (0.0-4.0); HEMATOCRIT 43.3 % (36-48); HEMOGLOBIN 14.6 g/dL (12.0-16.0); LYMPHOCYTES # (AUTO) 2.3 K/uL (1.0-5.5); LYMPHOCYTES % (AUTO) 23.4 % (20.5-51.5); MEAN CORPUSCULAR HEMOGLOBIN 30 pg (27-31); MEAN CORPUSCULAR HGB CONC 34 % (32-36); MEAN CORPUSCULAR VOLUME 88 fL (79.0-98.0); MONOCYTES # (AUTO) 0.5 K/uL (0.0-1.0); MONOCYTES % (AUTO) 5.1 % (1.7-9.3); NEUTROPHILS # (AUTO) 6.8 K/uL (1.8-7.7); NEUTROPHILS % (AUTO) 69.6 % (40.0-70.0); PLATELET COUNT (AUTO) 255 K/uL (130-430); RED BLOOD CELL COUNT(AUTO) 4.94 MIL/uL (4.2-6.2); RED CELL DISTRIBUTION WIDTH 14.2 % (9.0-15.0); WHITE BLOOD COUNT (AUTO) 9.8 K/uL (4.8-10.8)
[2019-03-13 19:54] LABS: CALCIUM 9.4 mg/dL (8.4-11.0); CREATININE 0.65 mg/dL (0.55-1.30); POTASSIUM 3.7 mmol/L (3.5-5.1)
[2019-03-13 19:59] LABS: ALBUMIN 4.2 g/dL (3.4-4.8); TOTAL BILIRUBIN 0.4 mg/dL (0.0-1.0)
[2019-03-13] MEDS ORDERED: LORazepam 1 MG TABLET PO ONE (20:15)
--- NOTE | 2019-03-13 20:20 | NUR ---
CARISSA Ortiz at bedside medicating pt per MD orders.
--- NOTE | 2019-03-13 21:10 | NUR ---
MD Gaines at bedside explaining results to pt.
--- NOTE | 2019-03-13 21:10 | NUR ---
Kaye an in ED - 03/13/19 at 2136 by [email or web address] MD Gaines at [facility] explaining results to pt.
[2019-03-13 21:30] VITALS: BP_SYST 140
--- NOTE | 2019-03-13 21:30 | NUR ---
Patient given written and verbal discharge instructions and verbalizes understanding. ER MD Gaines discussed with patient the results and treatment provided. Patient in stable condition. ID arm band removed. No Rx given. Patient educated on pain management and to follow up with PMD. Pain Scale 0/10. Opportunity for questions provided and answered. Medication side effect fact sheet provided.
== END 2019-03-13 21:30 | disposition home or self-care (01) ==
LOC: SED 16:46
DX: K29.70 Gastritis, unspecified, without bleeding (principal); F41.9 Anxiety disorder, unspecified; K21.9 Gastro-esophageal reflux disease without esophagitis; I10 Essential (primary) hypertension; Z88.1 Allergy status to other antibiotic agents; Z88.8 Allergy status to other drugs, medicaments and biological substances; Z79.899 Other long term (current) drug therapy
CPT/HCPCS: 36415; 80053; 83690-TC; 85025; 99284

== ENCOUNTER 2019-07-13 00:04 | Emergency (ER) | payer OTHER ==
[~2019-07-13] VITALS: Ht 157.5 cm; Wt 65.8 kg
[2019-07-13 00:25] VITALS: BP_SYST 166
--- NOTE | 2019-07-13 00:25 | NUR ---
pl Patient to ER bed 07 to gown for evaluation. Side rails up. Report given to CARISSA Lawler
--- NOTE | 2019-07-13 00:30 | NUR ---
Pt brought in by boyfriend. Pt awake, alert, oriented x4. Pt ambulated to room with steady gait. Pt states that she has been having "Blood pressure going up and down like crazy" with reported blood pressure of 200/110 at home. Pt states that she has also been experiencing dizziness, and vertigo-like symptoms. Pt also states that she has L lower flank pain. Pt denies [place], vomiting, shortness of breath, chest pain, cough, congestion, blurred vision or any other medical complaint at this time. Pt resting in ED bed, No acute distress noted. Pt states that she "Think this might be an episode of my anxiety" due to previous episodes that were similar.
--- NOTE | 2019-07-13 01:42 | NUR ---
ER at bedside examining patient.
--- NOTE | 2019-07-13 02:30 | NUR ---
Pt resting in ED bed. No acute distress. Pt watching videos on phone
[2019-07-13] MEDS ORDERED: NACL 0.9% 1,000 ML IV ONE (02:45)
[2019-07-13 03:10] LABS: BASOPHILS # (AUTO) 0.1 K/uL (0.0-0.2); EOSINOPHILS # (AUTO) 0.3 K/uL (0.0-0.4); EOSINOPHILS % (AUTO) 2.6 % (0.0-4.0); HEMATOCRIT 43.5 % (36-48); HEMOGLOBIN 14.7 g/dL (12.0-16.0); LYMPHOCYTES # (AUTO) 2.9 K/uL (1.0-5.5); LYMPHOCYTES % (AUTO) 25.9 % (20.5-51.5); MEAN CORPUSCULAR HEMOGLOBIN 29 pg (27-31); MEAN CORPUSCULAR HGB CONC 34 % (32-36); MEAN CORPUSCULAR VOLUME 87 fL (79.0-98.0); MONOCYTES # (AUTO) 0.6 K/uL (0.0-1.0); MONOCYTES % (AUTO) 5.9 % (1.7-9.3); NEUTROPHILS # (AUTO) 7.1 K/uL (1.8-7.7); NEUTROPHILS % (AUTO) 64.6 % (40.0-70.0); PLATELET COUNT (AUTO) 269 K/uL (130-430); RED BLOOD CELL COUNT(AUTO) 5.03 MIL/uL (4.2-6.2); RED CELL DISTRIBUTION WIDTH 14.8 % (9.0-15.0)
[2019-07-13 03:16] LABS: BILIRUBIN,URINE NEGATIVE (NEGATIVE); BLOOD, URINE NEGATIVE (NEGATIVE); CLARITY/URINE CLEAR (CLEAR); COLOR,URINE YELLOW (YELLOW); GLUCOSE,URINE NEGATIVE (NEGATIVE); KETONES,URINE NEGATIVE (NEGATIVE); LEUKOCYTE ESTERASE ,URINE NEGATIVE (NEGATIVE); NITRITE, URINE NEGATIVE (NEGATIVE); PROTEIN URINE NEGATIVE (NEGATIVE); UROBILINOGEN,URINE 0.2 (0.2-1.0)
[2019-07-13 03:23] LABS: ANION GAP 8 (5-15); CALCIUM 8.8 mg/dL (8.4-11.0); CHLORIDE 106 mmol/L (98-107); CREATININE 0.73 mg/dL (0.55-1.30); GLUCOSE 110 mg/dL (70-99); SODIUM SERUM 140 mmol/L (136-145); UREA NITROGEN, BLOOD 7 mg/dL (8-21)
--- NOTE | 2019-07-13 03:25 | NUR ---
Pt resting in ED bed. tolerating Fluids well
[2019-07-13 03:33] LABS: ALANINE AMINOTRANSFERASE 25 U/L (12-78); ALBUMIN 4.1 g/dL (3.4-4.8); ASPARTATE AMINOTRANSFERASE 17 U/L (10-37); LIPASE 71 U/L (73-393); TOTAL BILIRUBIN 0.3 mg/dL (0.0-1.0)
[2019-07-13 03:34] LABS: GFR AFRICAN AMERICAN 105 mL/min (>90)
[2019-07-13 05:10] VITALS: BP_SYST 155
--- NOTE | 2019-07-13 05:10 | NUR ---
Patient given written and verbal discharge instructions and verbalizes understanding. ER MD discussed with patient the results and treatment provided. Patient in stable condition. ID arm band removed. IV catheter removed intact and dressing applied, no active bleeding. No RX given. Patient educated on pain management and to follow up with PMD. Pain Scale 0/10. Opportunity for questions provided and answered.
== END 2019-07-13 05:10 | disposition home or self-care (01) ==
LOC: SED 00:04
DX: E86.0 Dehydration (principal); R42 Dizziness and giddiness; R10.9 Unspecified abdominal pain; K21.9 Gastro-esophageal reflux disease without esophagitis; I10 Essential (primary) hypertension; Z79.899 Other long term (current) drug therapy; Z88.1 Allergy status to other antibiotic agents
CPT/HCPCS: 36415; 70450; 74176; 80053; 81003; 83690; 84484; 85025; 93005; 99285; J7030

== ENCOUNTER 2019-12-03 11:42 | Emergency (ER) | payer OTHER ==
[~2019-12-03] VITALS: Ht 157.5 cm; Wt 63.5 kg
[2019-12-03 11:48] VITALS: BP_SYST 169
--- NOTE | 2019-12-03 12:00 | NUR ---
Patient to ER bed 06 to gown for evaluation. Side rails up.
--- NOTE | 2019-12-03 12:02 | NUR ---
Pt brought by self, A&Ox4, pt presents to ER with bump in the vaginal area, bilateral abdominal pain, and bruising in the R arm after blood draw, pt denies N/V/D or constipation, afebrile, skin pink and warm, cap refill <3, VSS, respirations even and unlabored.
--- NOTE | 2019-12-03 12:29 | NUR ---
Dr Fink evaluating patient at bedside
[2019-12-03] MEDS ORDERED: MORPHINE 2 MG/ML INJ. SYRINGE IM ONE (12:30)
--- NOTE | 2019-12-03 12:34 | NUR ---
Pt off the unit for CT
--- NOTE | 2019-12-03 12:48 | NUR ---
Patient ambulated to the bathroom with a steady gait. Urine specimen collected as ordered by Dr. Lopez.
--- NOTE | 2019-12-03 12:52 | NUR ---
Patient ambulated to the bathroom with a steady gait. Urine specimen collected as ordered by Dr. Lopez.
--- NOTE | 2019-12-03 12:54 | NUR ---
boiler/chiller technician at bedside collecting blood specimen as ordered by Dr. Fink. Patient tolerated the procedure well.
[2019-12-03 13:00] LABS: BASOPHILS # (AUTO) 0.1 K/uL (0.0-0.2); EOSINOPHILS # (AUTO) 0.5 K/uL (0.0-0.4); EOSINOPHILS % (AUTO) 6.3 % (0.0-4.0); HEMATOCRIT 43.2 % (36-48); HEMOGLOBIN 14.7 g/dL (12.0-16.0); LYMPHOCYTES # (AUTO) 3.3 K/uL (1.0-5.5); LYMPHOCYTES % (AUTO) 38.5 % (20.5-51.5); MEAN CORPUSCULAR HEMOGLOBIN 30 pg (27-31); MEAN CORPUSCULAR HGB CONC 34 % (32-36); MEAN CORPUSCULAR VOLUME 88 fL (79.0-98.0); MONOCYTES # (AUTO) 0.5 K/uL (0.0-1.0); MONOCYTES % (AUTO) 5.8 % (1.7-9.3); NEUTROPHILS # (AUTO) 4.2 K/uL (1.8-7.7); NEUTROPHILS % (AUTO) 48.4 % (40.0-70.0); PLATELET COUNT (AUTO) 280 K/uL (130-430); RED BLOOD CELL COUNT(AUTO) 4.94 MIL/uL (4.2-6.2); WHITE BLOOD COUNT (AUTO) 8.6 K/uL (4.8-10.8)
--- NOTE | 2019-12-03 13:07 | NUR ---
Administered Morphine Sulfate IM as ordered by Dr. Fink. Patient tolerated the medications well. See eMAR for details.
[2019-12-03 13:10] LABS: BILIRUBIN,URINE NEGATIVE (NEGATIVE); BLOOD, URINE NEGATIVE (NEGATIVE); CLARITY/URINE CLEAR (CLEAR); COLOR,URINE YELLOW (YELLOW); GLUCOSE,URINE NEGATIVE (NEGATIVE); KETONES,URINE NEGATIVE (NEGATIVE); LEUKOCYTE ESTERASE ,URINE NEGATIVE (NEGATIVE); NITRITE, URINE NEGATIVE (NEGATIVE); PH,URINE 7.5 (5.0-8.0); PROTEIN URINE NEGATIVE (NEGATIVE); UROBILINOGEN,URINE 0.2 (0.2-1.0)
[2019-12-03 13:14] LABS: CALCIUM 8.7 mg/dL (8.4-11.0); CREATININE 0.7 mg/dL (0.55-1.30); POTASSIUM 3.4 mmol/L (3.5-5.1)
[2019-12-03 13:17] LABS: INR 0.9 (0.8-1.2); PROTHROMBIN TIME 9.3 SECS (9.5-12.5)
[2019-12-03 13:19] LABS: ALBUMIN 4.2 g/dL (3.4-4.8); TOTAL BILIRUBIN 0.2 mg/dL (0.0-1.0)
--- NOTE | 2019-12-03 13:55 | NUR ---
Patient given written and verbal discharge instructions and verbalizes understanding. ER MD discussed with patient the results and treatment provided. Patient in stable condition. ID arm band removed. Rx of Doxycycline and Tylenol given. Patient educated on pain management and to follow up with PMD. Pain Scale 0/10. Opportunity for questions provided and answered. Medication side effect fact sheet provided.
[2019-12-03 13:56] VITALS: BP_SYST 134
== END 2019-12-03 13:55 | disposition home or self-care (01) ==
LOC: SED 11:42
DX: N72 Inflammatory disease of cervix uteri (principal); R10.9 Unspecified abdominal pain; I10 Essential (primary) hypertension; K21.9 Gastro-esophageal reflux disease without esophagitis; Z88.1 Allergy status to other antibiotic agents; Z79.899 Other long term (current) drug therapy
CPT/HCPCS: 36415; 74176; 80053; 81003; 81025; 83690; 85025; 85610; 85730; 96372; 99284; J2270

== ENCOUNTER 2020-10-02 12:14 | Emergency (ER) | payer OTHER ==
[~2020-10-02] VITALS: Ht 154.9 cm; Wt 68.0 kg
[~2020-10-02 12:14] MED LIST changes: +HYDR-3927 PO; -HYDR-4100 PO
[2020-10-02 12:15] VITALS: BP_SYST 148
[2020-10-02] MEDS ORDERED: OXYCODONE/ACETAMINOPHEN *10*mg/325 mg TABLET PO ONE (14:30)
[2020-10-02 14:45] LABS: BILIRUBIN,URINE NEGATIVE (NEGATIVE); BLOOD, URINE NEGATIVE (NEGATIVE); COLOR,URINE YELLOW (YELLOW); GLUCOSE,URINE NEGATIVE (NEGATIVE); KETONES,URINE NEGATIVE (NEGATIVE); LEUKOCYTE ESTERASE ,URINE NEGATIVE (NEGATIVE); NITRITE, URINE NEGATIVE (NEGATIVE); PROTEIN URINE NEGATIVE (NEGATIVE); UROBILINOGEN,URINE 0.2 (0.2-1.0)
[2020-10-02 14:46] LABS: CLARITY/URINE CLEAR (CLEAR)
[2020-10-02 16:05] LABS: BASOPHILS # (AUTO) 0.1 K/uL (0.0-0.2); BASOPHILS % (AUTO) 0.7 % (0.0-2.0); EOSINOPHILS # (AUTO) 0.6 K/uL (0.0-0.4); EOSINOPHILS % (AUTO) 8.1 % (0.0-4.0); HEMATOCRIT 40.3 % (36-48); HEMOGLOBIN 13.5 g/dL (12.0-16.0); LYMPHOCYTES # (AUTO) 3.2 K/uL (1.0-5.5); LYMPHOCYTES % (AUTO) 44.6 % (20.5-51.5); MEAN CORPUSCULAR HEMOGLOBIN 29 pg (27-31); MEAN CORPUSCULAR HGB CONC 34 % (32-36); MEAN CORPUSCULAR VOLUME 88 fL (79.0-98.0); MONOCYTES # (AUTO) 0.5 K/uL (0.0-1.0); MONOCYTES % (AUTO) 7.4 % (1.7-9.3); NEUTROPHILS # (AUTO) 2.8 K/uL (1.8-7.7); NEUTROPHILS % (AUTO) 39.2 % (40.0-70.0); PLATELET COUNT (AUTO) 232 K/uL (130-430); RED BLOOD CELL COUNT(AUTO) 4.58 MIL/uL (4.2-6.2); RED CELL DISTRIBUTION WIDTH 14.7 % (9.0-15.0); WHITE BLOOD COUNT (AUTO) 7.1 K/uL (4.8-10.8)
[2020-10-02 16:20] LABS: CREATININE 0.72 mg/dL (0.55-1.30); POTASSIUM 3.6 mmol/L (3.5-5.1)
[2020-10-02 16:22] LABS: INR 0.9 (0.8-1.2); PROTHROMBIN TIME 9.3 SECS (9.5-12.5)
[2020-10-02 16:24] LABS: C-REACTIVE PROTEIN QUANT 2.3 mg/dL (0-0.5)
[2020-10-02 16:27] LABS: ALBUMIN 3.8 g/dL (3.4-4.8); TOTAL BILIRUBIN 0.2 mg/dL (0.0-1.0)
[2020-10-02] MEDS ORDERED: MORPHINE 4 MG INJ. 4 MG/ML VIAL IM ONE (17:00)
[2020-10-02 18:00] VITALS: BP_SYST 122
== END 2020-10-02 18:00 | disposition home or self-care (01) ==
LOC: SED 12:14
DX: R10.13 Epigastric pain (principal); I10 Essential (primary) hypertension; K21.9 Gastro-esophageal reflux disease without esophagitis; Z88.1 Allergy status to other antibiotic agents; Z88.8 Allergy status to other drugs, medicaments and biological substances; Z79.899 Other long term (current) drug therapy
CPT/HCPCS: 36415; 74176; 76376; 80053; 81003; 82150; 83605; 83690; 85025; 85610; 85730; 86140; 96372; 99284; J2270

== ENCOUNTER 2022-01-13 19:02 | Emergency (ER) | payer OTHER ==
[~2022-01-13] VITALS: Ht 157.5 cm; Wt 78.9 kg
[2022-01-13 19:37] VITALS: BP_SYST 166
--- NOTE | 2022-01-13 19:45 | NUR ---
Patient triaged and placed in waiting room. VS checked and patient appears in no acute distress at this time. Accompanied by family, awaiting available bed, and MD notified of need for MSE.
--- NOTE | 2022-01-13 22:10 | NUR ---
MD Kirkland at bedside examining pt.
[2022-01-13 22:54] LABS: BASOPHILS # (AUTO) 0.1 K/uL (0.0-0.2); BASOPHILS % (AUTO) 0.9 % (0.0-2.0); EOSINOPHILS # (AUTO) 0.3 K/uL (0.0-0.4); EOSINOPHILS % (AUTO) 2.5 % (0.0-4.0); HEMATOCRIT 43.8 % (36-48); HEMOGLOBIN 14.8 g/dL (12.0-16.0); LYMPHOCYTES % (AUTO) 35.2 % (20.5-51.5); MEAN CORPUSCULAR HEMOGLOBIN 28 pg (27-31); MEAN CORPUSCULAR HGB CONC 34 % (32-36); MEAN CORPUSCULAR VOLUME 83 fL (79.0-98.0); MONOCYTES # (AUTO) 0.7 K/uL (0.0-1.0); MONOCYTES % (AUTO) 6.6 % (1.7-9.3); NEUTROPHILS # (AUTO) 6.2 K/uL (1.8-7.7); NEUTROPHILS % (AUTO) 54.8 % (40.0-70.0); PLATELET COUNT (AUTO) 248 K/uL (130-430); RED CELL DISTRIBUTION WIDTH 15.6 % (9.0-15.0); WHITE BLOOD COUNT (AUTO) 11.3 K/uL (4.8-10.8)
[2022-01-13 23:13] LABS: CALCIUM 9.7 mg/dL (8.4-11.0); CREATININE 0.79 mg/dL (0.55-1.30)
[2022-01-13 23:18] LABS: ALBUMIN 4.4 g/dL (3.4-4.8); TOTAL BILIRUBIN 0.4 mg/dL (0.0-1.0)
--- NOTE | 2022-01-14 01:50 | NUR ---
URINE COLLECTED AND SENT TO LAB.
[2022-01-14 01:54] LABS: BILIRUBIN,URINE NEGATIVE (NEGATIVE); BLOOD, URINE NEGATIVE (NEGATIVE); CLARITY/URINE CLEAR (CLEAR); COLOR,URINE YELLOW (YELLOW); GLUCOSE,URINE NEGATIVE (NEGATIVE); KETONES,URINE TRACE (NEGATIVE); LEUKOCYTE ESTERASE ,URINE NEGATIVE (NEGATIVE); NITRITE, URINE NEGATIVE (NEGATIVE); PH,URINE 6.5 (5.0-8.0); PROTEIN URINE NEGATIVE (NEGATIVE); UROBILINOGEN,URINE 0.2 (0.2-1.0)
[2022-01-14] MEDS ORDERED: MAG HYDROX/AL HYDROX/SIMETH 30 ML, LIDOCAINE VISCOUS 2% 15ML (PO) 15 ML, DICYCLOMINE HC... PO ONE ×6 (02:15→06:30)
[2022-01-14] MEDS ORDERED: ONDANSETRON HCL 4 MG/2 ML VIAL IVP ONE (02:15)
--- NOTE | 2022-01-14 02:53 | NUR ---
Pt taken to CT for imaging.
[2022-01-14] MEDS ORDERED: ONDANSETRON 4 MG ODT TAB PO ONE (03:15)
[2022-01-14] MEDS ORDERED: MORPHINE 4 MG INJ. 4 MG/ML VIAL IVP ONE (03:30)
[2022-01-14] MEDS ORDERED: MORPHINE SULFATE 10 MG/ML VIAL IVP ONE (03:45)
[2022-01-14] MEDS ORDERED: MORPHINE SULFATE 10 MG/ML VIAL IM ONE (04:00)
--- NOTE | 2022-01-14 06:16 | NUR ---
COVID SAMPLE COLLECTED AND SENT TO LAB
[2022-01-14] MEDS ORDERED: LEVE500T9 PO (06:18)
[2022-01-14] MEDS ORDERED: POLY17PO4 PO (06:32)
[2022-01-14] MEDS ORDERED: DOCU-144 PO (06:32)
[2022-01-14] MEDS ORDERED: KETOROLAC TROMETHAMINE 30 MG VIAL IVP ONE (07:15)
[2022-01-14] MEDS ORDERED: NACL 0.9% 1,000 ML IV ONE (07:15)
--- NOTE | 2022-01-14 07:33 | NUR ---
PATIENT IN BED C/O ABDOMINAL PAIN EDP REASSESS PATIENT WITH ORDER ELISE OUT.
--- NOTE | 2022-01-14 08:29 | NUR ---
CARE ENDORSED TO DAVION STEELE. PT IS SITTING WITH FOOD AND FLUIDS NO INFILLTRATION AT THIS TIME. PT DENIES PAIN.
--- NOTE | 2022-01-14 08:30 | NUR ---
# 24 gauge angiocath placed to RIGHT HAND. Use of asceptic technique. Opsite placed over site. Blood return noted. Blood for lab drawn from site. Flushed with 10 cc of normal saline. No evidence of infiltration noted. Patient tolerated well.
--- NOTE | 2022-01-14 08:31 | NUR ---
Medicated per MD orders. IVF infusing with no s/s of infiltration at this time. Will cont to monitor
[2022-01-14] MEDS ORDERED: ANT30 PO (10:27)
[2022-01-14] MEDS ORDERED: PHEN99.5 PO (10:27)
[2022-01-14] MEDS ORDERED: FAMO40TA71 PO (10:27)
--- NOTE | 2022-01-14 11:00 | NUR ---
Patient given written and verbal discharge instructions and verbalizes understanding. ER MD discussed with patient the results and treatment provided. Patient in stable condition. ID arm band removed. IV catheter removed intact and dressing applied, no active bleeding. Rx of MYLANTA, COLACE, PEPCID, MIRALAX, AND AZO URINARY PAIN RELIEF given. Patient educated on pain management and to follow up with PMD. Pain Scale . Opportunity for questions provided and answered. Medication side effect fact sheet provided.
[2022-01-14 11:05] VITALS: BP_SYST 142
== END 2022-01-14 11:00 | disposition home or self-care (01) ==
LOC: SED 19:02
DX: K59.00 Constipation, unspecified (principal); R10.9 Unspecified abdominal pain; R11.0 Nausea; R33.9 Retention of urine, unspecified; K21.9 Gastro-esophageal reflux disease without esophagitis; I10 Essential (primary) hypertension; Z88.1 Allergy status to other antibiotic agents; Z88.5 Allergy status to narcotic agent; Z88.8 Allergy status to other drugs, medicaments and biological substances; Z79.899 Other long term (current) drug therapy; Z20.822 Contact with and (suspected) exposure to COVID-19
CPT/HCPCS: 99285; 87426; 80053; 83690; 85025; 36415; 74021; 81003; 74176; 96374; 96375; 76376; 96372; Q0162; J2001; J1885; J2405; J2270

== ENCOUNTER 2022-06-20 09:02 | Inpatient (IN) | payer OTHER ==
[~2022-06-20] VITALS: Ht 157.5 cm; Wt 77.6 kg
[~2022-06-20 09:02] MED LIST changes: +ANT30 PO; +DOCU-144 PO; +FAMO40TA71 PO; +LEVE500T9 PO; +PHEN99.5 PO
[2022-06-20 09:05] VITALS: BP_SYST 127
[2022-06-20 09:34] LABS: BASOPHILS # (AUTO) 0.1 K/uL (0.0-0.2); BASOPHILS % (AUTO) 0.5 % (0.0-2.0); EOSINOPHILS # (AUTO) 0.2 K/uL (0.0-0.4); EOSINOPHILS % (AUTO) 1.8 % (0.0-4.0); HEMATOCRIT 42.9 % (36-48); HEMOGLOBIN 14.2 g/dL (12.0-16.0); LYMPHOCYTES # (AUTO) 4.7 K/uL (1.0-5.5); LYMPHOCYTES % (AUTO) 33.8 % (20.5-51.5); MEAN CORPUSCULAR HEMOGLOBIN 28 pg (27-31); MEAN CORPUSCULAR HGB CONC 33 % (32-36); MEAN CORPUSCULAR VOLUME 84 fL (79.0-98.0); MONOCYTES # (AUTO) 0.6 K/uL (0.0-1.0); MONOCYTES % (AUTO) 4.5 % (1.7-9.3); NEUTROPHILS # (AUTO) 8.2 K/uL (1.8-7.7); NEUTROPHILS % (AUTO) 59.4 % (40.0-70.0); PLATELET COUNT (AUTO) 261 K/uL (130-430); RED BLOOD CELL COUNT(AUTO) 5.11 MIL/uL (4.2-6.2); RED CELL DISTRIBUTION WIDTH 16.7 % (9.0-15.0); WHITE BLOOD COUNT (AUTO) 13.8 K/uL (4.8-10.8)
[2022-06-20 10:09] LABS: ALANINE AMINOTRANSFERASE 78 U/L (12-78); AMYLASE 50 U/L (0-100); ANION GAP 18 (5-15); ASPARTATE AMINOTRANSFERASE 31 U/L (10-37); C-REACTIVE PROTEIN QUANT 0.6 mg/dL (0-0.5); CALCIUM 8.6 mg/dL (8.4-11.0); CHLORIDE 105 mmol/L (98-107); CREATININE 0.92 mg/dL (0.55-1.30); GFR AFRICAN AMERICAN 80 mL/min (>90); GLUCOSE 144 mg/dL (70-99); LACTATE DEHYDROGENASE 170 U/L (81-234); LIPASE 66 U/L (73-393); TOTAL BILIRUBIN 0.5 mg/dL (0.0-1.0); UREA NITROGEN, BLOOD 8 mg/dL (8-21)
[2022-06-20 10:44] LABS: BILIRUBIN,URINE NEGATIVE (NEGATIVE); BLOOD, URINE NEGATIVE (NEGATIVE); CLARITY/URINE SL CLOUDY (CLEAR); COLOR,URINE YELLOW (YELLOW); GLUCOSE,URINE NEGATIVE (NEGATIVE); KETONES,URINE NEGATIVE (NEGATIVE); LEUKOCYTE ESTERASE ,URINE TRACE (NEGATIVE); NITRITE, URINE NEGATIVE (NEGATIVE); PROTEIN URINE TRACE (NEGATIVE); UROBILINOGEN,URINE 0.2 (0.2-1.0)
[2022-06-20 11:16] LABS: BACTERIA,URINE FEW /HPF (None Seen); RBC,URINE 0-3 /HPF (0-3); URINE AMORPHOUS PHOSPHATES 1+ /HPF (None Seen)
[2022-06-20] MEDS ORDERED: MORPHINE 2 MG/ML INJ. SYRINGE IM ONE (13:30)
[2022-06-20] MEDS ORDERED: NACL 0.9% 1,000 ML IV ONE (13:45)
[2022-06-20] MEDS ORDERED: PIPERACILLIN/TAZO 4.5GM/DEX-IS 100 ML IV SCH (13:45)
[2022-06-20] MEDS ORDERED: VANCOMYCIN HCL 1,000 MG in NS 250 ML IV ONE (14:00)
[2022-06-20] MEDS ORDERED: D5/0.45 NS 1,000 ML IV ONE (14:00)
[2022-06-20] MEDS ORDERED: PIPERACILLIN/TAZO 4.5 GM in NS 100 ML IV ONE (14:00)
[2022-06-20] MEDS ORDERED: PIPERACILLIN/TAZO 4.5GM/DEX-IS 100 ML IV ONE (14:15)
[2022-06-20] MEDS ORDERED: PIPERACILLIN/TAZOBACTAM 4.5 GM/VIAL (ZOSYN) IV ONE (14:17)
[2022-06-20] MEDS ORDERED: VANCOMYCIN HCL 1000 MG/VIAL IV ONE (14:40)
[2022-06-20] MEDS ORDERED: NALOXONE HCL 0.4 MG/ML AMP (NARCAN) IVP PRN (18:00)
[2022-06-20] MEDS: HYDROmorphone 1 MG/ML INJ. CARTRIDGE IVP PRN ×2 (18:19→23:56)
[2022-06-20] MEDS ORDERED: ONDANSETRON HCL 4 MG/2 ML VIAL IVP PRN (19:45)
[2022-06-20] MEDS ORDERED: ACETAMINOPHEN 325 MG TABLET PO PRN (20:00)
[2022-06-20] MEDS ORDERED: SACCHAROMYCES BOULARDII 250 MG CAPSULE (FLORASTOR) PO SCH (21:00)
[2022-06-20] MEDS: ENOXAPARIN SODIUM 40 MG/0.4 ML SYRINGE SUBCUT SCH (23:55)
[2022-06-20] MEDS: PANTOPRAZOLE SODIUM 40 MG/VIAL (PROTONIX) IVP SCH (23:56)
[2022-06-21 00:07] VITALS: BP_SYST 158
[2022-06-21] MEDS ORDERED: metroNIDAZOLE 500 mg/NS 100 ML IV ONE (00:49)
[2022-06-21] MEDS ORDERED: KCL 20 mEq in 0.45% NS 1000 mL 1,000 ML IV ONE (00:49)
[2022-06-21] MEDS: KCL 20 mEq in 0.45% NS 1000 mL 1,000 ML IV SCH ×3 (01:30→17:00)
[2022-06-21] MEDS: DOCUSATE SODIUM 100 MG CAPSULE PO SCH ×3 (01:31→20:56)
[2022-06-21] MEDS: levETIRAcetam 500 MG TABLET PO SCH ×3 (01:31→20:56)
[2022-06-21] MEDS: LACTOBACILLUS RHAMNOSUS GG 1 CAP CAPSULE PO SCH ×2 (01:31→20:56)
[2022-06-21] MEDS: metroNIDAZOLE 500 mg/NS 100 ML IV SCH ×4 (01:32→20:57)
[2022-06-21 02:28] VITALS: BP_SYST 150
[2022-06-21] MEDS: ALPRAZolam 0.25 MG TABLET PO PRN ×3 (04:35→22:39)
[2022-06-21 05:13] LABS: BASOPHILS # (AUTO) 0.1 K/uL (0.0-0.2); BASOPHILS % (AUTO) 0.7 % (0.0-2.0); EOSINOPHILS # (AUTO) 0.2 K/uL (0.0-0.4); EOSINOPHILS % (AUTO) 1.4 % (0.0-4.0); HEMATOCRIT 37.3 % (36-48); HEMOGLOBIN 12.3 g/dL (12.0-16.0); LYMPHOCYTES # (AUTO) 4.5 K/uL (1.0-5.5); LYMPHOCYTES % (AUTO) 38.1 % (20.5-51.5); MEAN CORPUSCULAR HEMOGLOBIN 28 pg (27-31); MEAN CORPUSCULAR HGB CONC 33 % (32-36); MEAN CORPUSCULAR VOLUME 84 fL (79.0-98.0); MONOCYTES # (AUTO) 0.6 K/uL (0.0-1.0); MONOCYTES % (AUTO) 4.7 % (1.7-9.3); NEUTROPHILS # (AUTO) 6.5 K/uL (1.8-7.7); NEUTROPHILS % (AUTO) 55.1 % (40.0-70.0); PLATELET COUNT (AUTO) 227 K/uL (130-430); RED BLOOD CELL COUNT(AUTO) 4.42 MIL/uL (4.2-6.2); RED CELL DISTRIBUTION WIDTH 16.4 % (9.0-15.0); WHITE BLOOD COUNT (AUTO) 11.7 K/uL (4.8-10.8)
[2022-06-21 05:35] LABS: CALCIUM 7.7 mg/dL (8.4-11.0); CREATININE 0.63 mg/dL (0.55-1.30)
[2022-06-21] MEDS: HYDROmorphone 1 MG/ML INJ. CARTRIDGE IVP PRN ×3 (06:16→20:56)
[2022-06-21 08:00] VITALS: BP_SYST 133
[2022-06-21] MEDS: CHOLECALCIFEROL (VITAMIN D3) 2,000 UNIT TABLET PO SCH (09:00)
[2022-06-21] MEDS: POLYETHYLENE GLYCOL 3350, 17 GM/ POWD.PACK PO SCH (09:00)
[2022-06-21 11:35] VITALS: BP_SYST 151
[2022-06-21] MEDS: PANTOPRAZOLE SODIUM 40 MG/VIAL (PROTONIX) IVP SCH ×2 (12:37→20:56)
[2022-06-21 16:48] VITALS: BP_SYST 129
[2022-06-21] MEDS: ENOXAPARIN SODIUM 40 MG/0.4 ML SYRINGE SUBCUT SCH (20:55)
[2022-06-22 00:10] VITALS: BP_SYST 141
[2022-06-22] MEDS: TEMAZEPAM 7.5 MG CAPSULE PO PRN ×2 (00:49→23:28)
[2022-06-22] MEDS: HYDROmorphone 1 MG/ML INJ. CARTRIDGE IVP PRN ×5 (01:24→21:31)
[2022-06-22] MEDS: metroNIDAZOLE 500 mg/NS 100 ML IV SCH ×3 (05:10→21:42)
[2022-06-22] MEDS: KCL 20 mEq in 0.45% NS 1000 mL 1,000 ML IV SCH ×2 (05:12→17:14)
[2022-06-22 08:00] VITALS: BP_SYST 95
[2022-06-22] MEDS: POLYETHYLENE GLYCOL 3350, 17 GM/ POWD.PACK PO SCH (08:55)
[2022-06-22] MEDS: levETIRAcetam 500 MG TABLET PO SCH ×2 (08:56→21:30)
[2022-06-22] MEDS: CHOLECALCIFEROL (VITAMIN D3) 2,000 UNIT TABLET PO SCH (08:56)
[2022-06-22] MEDS: LACTOBACILLUS RHAMNOSUS GG 1 CAP CAPSULE PO SCH ×2 (08:56→21:30)
[2022-06-22] MEDS: DOCUSATE SODIUM 100 MG CAPSULE PO SCH ×2 (08:56→21:30)
[2022-06-22] MEDS: PANTOPRAZOLE SODIUM 40 MG/VIAL (PROTONIX) IVP SCH ×2 (10:23→21:38)
[2022-06-22 10:29] VITALS: BP_SYST 129
[2022-06-22 12:00] VITALS: BP_SYST 130
[2022-06-22 16:48] VITALS: BP_SYST 132
[2022-06-22 19:55] VITALS: BP_SYST 136
[2022-06-22] MEDS: ENOXAPARIN SODIUM 40 MG/0.4 ML SYRINGE SUBCUT SCH (21:32)
[2022-06-23] MEDS: KCL 20 mEq in 0.45% NS 1000 mL 1,000 ML IV SCH (01:41)
[2022-06-23] MEDS: HYDROmorphone 1 MG/ML INJ. CARTRIDGE IVP PRN ×3 (02:02→11:10)
[2022-06-23 04:56] LABS: BASOPHILS # (AUTO) 0.1 K/uL (0.0-0.2); BASOPHILS % (AUTO) 0.9 % (0.0-2.0); EOSINOPHILS # (AUTO) 0.5 K/uL (0.0-0.4); EOSINOPHILS % (AUTO) 4.7 % (0.0-4.0); HEMATOCRIT 38.1 % (36-48); HEMOGLOBIN 12.7 g/dL (12.0-16.0); LYMPHOCYTES # (AUTO) 4.8 K/uL (1.0-5.5); LYMPHOCYTES % (AUTO) 49.4 % (20.5-51.5); MEAN CORPUSCULAR HEMOGLOBIN 28 pg (27-31); MEAN CORPUSCULAR HGB CONC 33 % (32-36); MEAN CORPUSCULAR VOLUME 84 fL (79.0-98.0); MONOCYTES # (AUTO) 0.5 K/uL (0.0-1.0); MONOCYTES % (AUTO) 5.2 % (1.7-9.3); NEUTROPHILS # (AUTO) 3.9 K/uL (1.8-7.7); NEUTROPHILS % (AUTO) 39.8 % (40.0-70.0); PLATELET COUNT (AUTO) 216 K/uL (130-430); RED BLOOD CELL COUNT(AUTO) 4.54 MIL/uL (4.2-6.2); RED CELL DISTRIBUTION WIDTH 16.5 % (9.0-15.0); WHITE BLOOD COUNT (AUTO) 9.7 K/uL (4.8-10.8)
[2022-06-23 05:03] LABS: PROTHROMBIN TIME 10.7 SECS (9.5-12.5)
[2022-06-23 05:06] LABS: CALCIUM 8.1 mg/dL (8.4-11.0); CREATININE 0.6 mg/dL (0.55-1.30)
[2022-06-23] MEDS: metroNIDAZOLE 500 mg/NS 100 ML IV SCH (05:17)
[2022-06-23] MEDS ORDERED: SIMETHICONE 40 MG/0.6 ML ML ONE (07:26)
[2022-06-23] MEDS: MIDAZOLAM HCL 5 MG/5 ML VIAL ONE ×3 (09:32→09:39)
[2022-06-23] MEDS: fentaNYL CITRATE/PF 100 MCG/2 ML AMP ONE ×2 (09:32→09:34)
[2022-06-23] MEDS: levETIRAcetam 500 MG TABLET PO SCH (10:44)
[2022-06-23] MEDS: CHOLECALCIFEROL (VITAMIN D3) 2,000 UNIT TABLET PO SCH (10:45)
[2022-06-23] MEDS: DOCUSATE SODIUM 100 MG CAPSULE PO SCH (10:46)
[2022-06-23] MEDS: PANTOPRAZOLE SODIUM 40 MG/VIAL (PROTONIX) IVP SCH (10:46)
[2022-06-23] MEDS: LACTOBACILLUS RHAMNOSUS GG 1 CAP CAPSULE PO SCH (10:46)
[2022-06-23] MEDS: POLYETHYLENE GLYCOL 3350, 17 GM/ POWD.PACK PO SCH (10:47)
[2022-06-23 12:29] VITALS: BP_SYST 140
[2022-06-23 14:40] VITALS: BP_SYST 140
[2022-06-23 16:29] VITALS: BP_SYST 161
== END 2022-06-23 15:45 | disposition home or self-care (01) | DRG 392 ==
LOC: SED 09:02 → SMU 13:50
PROVIDERS: ADMIT Family Medicine; ATTEND Family Medicine
PROC: 0DB68ZX Excision of Stomach, Via Natural or Artificial Opening Endoscopic, Diagnostic (ICD-10-PCS; principal; 2022-06-23 09:00)
DX: K52.9 Noninfective gastroenteritis and colitis, unspecified (principal); E87.20 Acidosis, unspecified; M48.50XA Collapsed vertebra, not elsewhere classified, site unspecified, initial encounter for fracture; R65.10 Systemic inflammatory response syndrome (SIRS) of non-infectious origin without acute organ dysfunction; K29.70 Gastritis, unspecified, without bleeding; D72.829 Elevated white blood cell count, unspecified; F41.9 Anxiety disorder, unspecified; G40.909 Epilepsy, unspecified, not intractable, without status epilepticus; G89.4 Chronic pain syndrome; K44.9 Diaphragmatic hernia without obstruction or gangrene; Z88.1 Allergy status to other antibiotic agents
CPT/HCPCS: 36415; 43239; 71045; 76376; 76700-TC; 80048; 80053; 81000; 82150; 82977; 83605; 83615; 83690; 83735; 84484; 85025; 85610-TC; 86140; 87040; 87081; 95816; 96365; 96366; 96368; 99285; C9113; J1170; J1650; J2250; J2270; J2405; J2543; J3010; J3370; J3480; J3490; J7030; J7050

== ENCOUNTER 2023-05-28 00:18 | Emergency (ER) | payer OTHER ==
[~2023-05-28] VITALS: Ht 152.4 cm; Wt 79.4 kg
[2023-05-28 00:26] VITALS: BP_SYST 134; PULSE 71; RESP 16; TEMP 96.9; O2SAT 97
[2023-05-28 01:20] LABS: BILIRUBIN,URINE NEGATIVE (NEGATIVE); CLARITY/URINE CLEAR (CLEAR); COLOR,URINE YELLOW (YELLOW); GLUCOSE,URINE NEGATIVE (NEGATIVE); KETONES,URINE 1+ (NEGATIVE); LEUKOCYTE ESTERASE ,URINE 2+ (NEGATIVE); NITRITE, URINE NEGATIVE (NEGATIVE); PROTEIN URINE NEGATIVE (NEGATIVE); UROBILINOGEN,URINE 0.2 (0.2-1.0)
[2023-05-28 01:21] LABS: BLOOD, URINE TRACE (NEGATIVE)
[2023-05-28 01:46] LABS: CALCIUM 8.5 mg/dL (8.4-11.0); CREATININE 0.69 mg/dL (0.55-1.30); POTASSIUM 3.4 mmol/L (3.5-5.1)
[2023-05-28 01:50] LABS: ALBUMIN 3.3 g/dL (3.4-4.8); BILIRUBIN,DIRECT 0.1 mg/dL (0.0-0.3); TOTAL BILIRUBIN 0.4 mg/dL (0.0-1.0); TOTAL PROTEIN, SERUM 7.3 g/dL (6.4-8.3)
[2023-05-28 01:54] LABS: BASOPHILS # (AUTO) 0.1 K/uL (0.0-0.2); BASOPHILS % (AUTO) 0.5 % (0.0-2.0); EOSINOPHILS # (AUTO) 0.5 K/uL (0.0-0.4); EOSINOPHILS % (AUTO) 4.6 % (0.0-4.0); HEMATOCRIT 37.5 % (36-48); HEMOGLOBIN 12.5 g/dL (12.0-16.0); LYMPHOCYTES # (AUTO) 5.7 K/uL (1.0-5.5); LYMPHOCYTES % (AUTO) 51.2 % (20.5-51.5); MEAN CORPUSCULAR HEMOGLOBIN 28 pg (27-31); MEAN CORPUSCULAR HGB CONC 33 % (32-36); MEAN CORPUSCULAR VOLUME 83 fL (79.0-98.0); MONOCYTES # (AUTO) 0.9 K/uL (0.0-1.0); MONOCYTES % (AUTO) 8.1 % (1.7-9.3); NEUTROPHILS % (AUTO) 35.6 % (40.0-70.0); PLATELET COUNT (AUTO) 238 K/uL (130-430); RED BLOOD CELL COUNT(AUTO) 4.49 MIL/uL (4.2-6.2); RED CELL DISTRIBUTION WIDTH 17.5 % (9.0-15.0); WHITE BLOOD COUNT (AUTO) 11.2 K/uL (4.8-10.8)
[2023-05-28] MEDS: MORPHINE 4 MG INJ. 4 MG/ML VIAL IVP ONE ×2 (01:56→03:23)
[2023-05-28] MEDS: KETOROLAC TROMETHAMINE 30 MG VIAL IVP ONE (01:56)
[2023-05-28] MEDS: NACL 0.9% 1,000 ML IV ONE (01:57)
[2023-05-28 01:59] LABS: BACTERIA,URINE FEW /HPF (None Seen)
[2023-05-28] MEDS ORDERED: LEVO-62 PO (02:58)
[2023-05-28] MEDS ORDERED: TRAM50TA2 PO (03:01)
[2023-05-28] MEDS ORDERED: CEFEPIME 1 GM/VIAL (MAXIPIME) ONE (03:01)
[2023-05-28] MEDS: CEFEPIME 1 GM in D5W 50 ML IV ONE (03:24)
[2023-05-28 04:20] VITALS: BP_SYST 135; PULSE 66; O2SAT 96
== END 2023-05-28 04:20 | disposition home or self-care (01) ==
LOC: SED 00:18
DX: N39.0 Urinary tract infection, site not specified (principal); R10.9 Unspecified abdominal pain; R30.0 Dysuria; K21.9 Gastro-esophageal reflux disease without esophagitis; I10 Essential (primary) hypertension; Z88.1 Allergy status to other antibiotic agents; Z88.7 Allergy status to serum and vaccine; Z79.899 Other long term (current) drug therapy
CPT/HCPCS: 99285; 74176; 96365; 96375; 96361; 80076; 80048; 81001; 85025; 87086; 36415; 96376; 81000; 81015; J1885; J2270; J7030; J0692

== ENCOUNTER 2023-09-30 20:41 | Emergency (ER) | payer OTHER ==
[~2023-09-30] VITALS: Ht 157.5 cm; Wt 72.6 kg
[~2023-09-30 20:41] MED LIST changes: +LEVO-62 PO; +TRAM50TA2 PO
[2023-09-30 21:11] VITALS: BP_SYST 183; PULSE 96; RESP 20; TEMP 98; O2SAT 93
[2023-09-30] MEDS: KETOROLAC TROMETHAMINE 60 MG/2 ML VIAL IM ONE (23:05)
[2023-10-01] MEDS ORDERED: NAPR-688 PO (00:25)
[2023-10-01 00:31] VITALS: BP_SYST 163; PULSE 65; RESP 18; TEMP 97.8; O2SAT 98
== END 2023-10-01 00:31 | disposition home or self-care (01) ==
LOC: SED 20:41
DX: S83.8X2A Sprain of other specified parts of left knee, initial encounter (principal); S83.8X1A Sprain of other specified parts of right knee, initial encounter; S63.591A Other specified sprain of right wrist, initial encounter; S09.8XXA Other specified injuries of head, initial encounter; I10 Essential (primary) hypertension; M79.7 Fibromyalgia; K21.9 Gastro-esophageal reflux disease without esophagitis; G89.29 Other chronic pain; Z98.890 Other specified postprocedural states; Z88.1 Allergy status to other antibiotic agents; Z88.8 Allergy status to other drugs, medicaments and biological substances; Z79.899 Other long term (current) drug therapy; Z79.2 Long term (current) use of antibiotics; W18.39XA Other fall on same level, initial encounter; Y93.89 Activity, other specified; Y92.89 Other specified places as the place of occurrence of the external cause; Y99.8 Other external cause status
CPT/HCPCS: 99285; 70450; 73100; 73565; 96372; J1885

== ENCOUNTER 2023-10-02 14:35 | Emergency (ER) | payer OTHER ==
[~2023-10-02] VITALS: Ht 157.5 cm; Wt 72.6 kg
[~2023-10-02 14:35] MED LIST changes: +NAPR-688 PO
[2023-10-02 14:43] VITALS: BP_SYST 135; PULSE 89; RESP 18; TEMP 98.3; O2SAT 98
[2023-10-02] MEDS: IBUPROFEN 600 MG TABLET PO ONE (15:07)
[2023-10-02] MEDS: HYDROcodone/ACETAMIN 5-325 MG TAB (NORCO/ VICODIN) PO ONE (15:29)
[2023-10-02 16:07] VITALS: BP_SYST 135; PULSE 89; RESP 18; TEMP 98.3; O2SAT 98
== END 2023-10-02 16:00 | disposition home or self-care (01) ==
LOC: SED 14:35
DX: S62.322A Displaced fracture of shaft of third metacarpal bone, right hand, initial encounter for closed fracture (principal); K21.9 Gastro-esophageal reflux disease without esophagitis; I10 Essential (primary) hypertension; M79.7 Fibromyalgia; G89.29 Other chronic pain; F41.9 Anxiety disorder, unspecified; Z98.890 Other specified postprocedural states; Z88.1 Allergy status to other antibiotic agents; Z88.8 Allergy status to other drugs, medicaments and biological substances; Z79.899 Other long term (current) drug therapy; Z79.2 Long term (current) use of antibiotics; W01.0XXA Fall on same level from slipping, tripping and stumbling without subsequent striking against object, initial encounter; Y93.89 Activity, other specified; Y92.89 Other specified places as the place of occurrence of the external cause; Y99.8 Other external cause status
CPT/HCPCS: 99283